=== PATIENT | male | born 1960 | race Caucasian/White ===

== ENCOUNTER 2017-05-27 15:38 | Inpatient (IN) | payer OTHER ==
[~2017-05-27] VITALS: Ht 188 cm; Wt 101.6 kg
[2017-05-27 16:20] VITALS: BP 133/90; PULSE 71; RESP 16; O2SAT 98
[2017-05-27 16:56] VITALS: BP 138/86; PULSE 66; RESP 14; O2SAT 98
[2017-05-27] MEDS ORDERED: Heparin 25K Unit/500mL 0.45 NS 25,000 UNIT in IV Premix 1 EACH IV SCH (17:25)
[2017-05-27] MEDS ORDERED: Heparin 5,000 Unit/mL Inj IVPUSH ONE (17:25)
[2017-05-27] MEDS ORDERED: Heparin 5,000 Unit/mL Inj IVPUSH PRN ×2 (17:25→23:05)
--- NOTE | 2017-05-27 17:25 | ED.REPORT ---
HPI-General Illness Date of Service May 27, 2017 ED Provider: Venancio Dailey DO Pt is a previously healthy 56 y/o male presenting to the ED c/o right calf pain and swelling which has been occurring intermittently since last October. The patient injured his right posterior calf while moving firewood 2015 and since that time has been experiencing intermittent right calf pain and swelling. He has also been experiencing intermittent dyspnea on exertion which is NOT commensurate with the effort he has been putting in. He previously exercised and lifted heavy weights regularly without any problems with dyspnea. He has no history of blood clots or other medical problems. The patient had a RLE US ordered by his PCP and it was taken today and positive for extensive DVT of the RLE with areas of occlusion, report below. Pt denies pleuritic pain, chest pain, dyspnea without exertion, epistaxis, bloody stools. FINDINGS: There is extensive echogenic thrombus throughout the superficial femoral, popliteal, posterior tibial and peroneal veins, with partial or noncompressibility of the involved vessels. Color Doppler interrogation demonstrates patchy preserved venous flow within portions of the superficial femoral vein. Right common femoral vein remains normally compressible. IMPRESSION: Extensive occlusive and nonocclusive right lower extremity deep venous thrombus extends from the superficial femoral vein down to the posterior tibial and peroneal veins. Nursing Notes Stated Complaint: BLOOD CLOT,SENT FROM [facility] Chief Complaint: General Complaint Nursing Notes Reviewed: Yes Allergies: Coded Allergies: No Known Allergies (Unverified , 05/27/17) Scheduled FA/Vit B Complex & C/Rice Bran (Vitamin B-Complex & C Caplet) 1 Each Tablet 1 EACH PO DAILY General Time Seen by MD: 17:05 Chief Complaint Other (RLE edema) Hx Obtained From: Patient Arrived By: Walk-in Onset Occurred: More than a week ago... (>6 months) Symptom Duration: Intermittent Location: : Leg right Quality: Painful Severity: Current: Mild Severity: Maximum: Moderate Recent Healthcare: Recent doctor visit Past Medical History Past Medical History Reactive airways disease Otherwise denies Past Surgical History None reported Smoking History Unknown if Ever Smoker Social History Other Social History: Good social support Ambulatory Status Independent Review of Systems Full Review of Systems Constitutional: Denies: Chills, Fever Respiratory: Reports: Dyspnea on exertion, Denies: Pleuritic pain, Shortness of breath Cardiovascular: Denies: Chest pain GI: Denies: Abdominal pain, Bloody/tarry stool, Nausea, Vomiting Musculoskeletal: Reports: Extremity pain, Extremity swelling Hematologic: Denies Adenopathy, Denies Bleeding, Denies Bruising, Denies Petechiae Skin: Denies Rash Complete sys rev & neg: except as marked. Physical Exam Vital Signs Vital Signs Date Time Temp Pulse Resp B/P Pulse Ox O2 Delivery O2 Flow Rate FiO2 05/27/17 19:34 71 16 117/73 97 05/27/17 19:32 66 20 134/89 97 Room Air 05/27/17 16:56 36.3 66 14 138/86 98 Room Air 05/27/17 16:20 36.4 71 16 133/90 98 Room Air Initial VS: Reviewed, Vital signs normal Head / Eyes: Atraumatic, Normocephalic, PERRL ENT: Mucous membranes moist, Conjunctiva normal, No scleral icterus Neck: Supple, Full range of motion Respiratory: Breath sounds normal, Clear to auscultation, No respiratory distress Cardiovascular: Regular rate & rhythm, Heart sounds normal, Intact distal pulses Abdomen / GI: Soft, Non-tender, No distention Skin: Warm, Dry, No cyanosis Neurologic: Alert, Oriented, Nonfocal Psychiatric: Mood/affect normal, Behavior normal, Normal thought content General/Constitutional: Awake, Alert, No acute distress, Well appearing, Cooperative, Not toxic appearing Lower Extremity / Pelvis / MS: No deformity, Neurologic intact, Vascular intact Edema of the R calf extending up the leg Interpretation & Diagnostics Lab Results Interpretation Result Diagram: 05/27/17 1648 05/27/17 1648 Test 05/27/17 16:48 05/27/17 18:04 White Blood Count 7.2th/mm3 (3.8-10.1) Red Blood Count 5.20mil/mm3 (4.40-5.80) Hemoglobin 16.0g/dL (13.8-17.2) Hematocrit 46.7% (41.0-50.0) Mean Corpuscular Volume 89.8fL (81-100) Mean Corpuscular Hemoglobin 30.8pg (27.0-35.0) Mean Corpuscular Hemoglobin Concent 34.3% (32.0-37.0) Red Cell Distribution Width 12.3% (12.3-15.4) Platelet Count 205bil/L (150-400) Neutrophils (%) (Auto) 72.1% (40-74) Lymphocytes (%) (Auto) 19.9% (14-46) Monocytes (%) (Auto) 6.7% (4-12) Eosinophils (%) (Auto) 0.6% (0-5) Basophils (%) (Auto) 0.6% (0-3) Hold Purple Top Tube Received (Received) Prothrombin Time 11.1sec (8.1-12.5) Prothromb Time International Ratio 1.04ratio Hold Blue Top Tube Received (Received) Hold Urine Received (Received) Sodium Level 139mEq/L (134-144) Potassium Level 4.3mEq/L (3.5-5.2) Chloride Level 99mEq/L (97-108) Carbon Dioxide Level 24mmol/L (18-29) Blood Urea Nitrogen 25mg/dL (6-24) Creatinine 0.89mg/dL (0.76-1.27) Estimat Glomerular Filtration Rate 94mL/min (>59) Glucose Level 125mg/dL (60-99) Calcium Level 9.6mg/dL (8.5-10.1) Total Bilirubin 0.5mg/dL (0.0-1.2) Aspartate Amino Transf (AST/SGOT) 19U/L (0-50) Alanine Aminotransferase (ALT/SGPT) 20U/L (0-44) Alkaline Phosphatase 81U/L (25-150) Total Protein 8.0g/dL (6.4-8.4) Albumin 4.5g/dL (3.4-5.0) Hold [place] Top Tube Received (Received) Hold Prince Top Tube Received (Received) X-Ray Chest Interpretation Chest Xray Interpretation: IMPRESSION: No acute cardiopulmonary disease. Dictated by: Vivek Galicia M.D. on 05/27/2017 at 18:05 Approved by: Vivek Galicia M.D. on 05/27/2017 at 18:05 View: Portable, 1 view Interpretation / Wet Read by: Interpret - Radiologist US Focused Lower Ext Venous FINDINGS: There is extensive echogenic thrombus throughout the superficial femoral, popliteal, posterior tibial and peroneal veins, with partial or noncompressibility of the involved vessels. Color Doppler interrogation demonstrates patchy preserved venous flow within portions of the superficial femoral vein. Right common femoral vein remains normally compressible. IMPRESSION: Extensive occlusive and nonocclusive right lower extremity deep venous thrombus extends from the superficial femoral vein down to the posterior tibial and peroneal veins. Dictated by: Vivek Galicia M.D. on 05/27/2017 at 15:33 Approved by: Vivek Galicia M.D. on 05/27/2017 at 15:37 Exam Performed by: Allied health pract Exam Interpreted by: Radiologist Re-Eval/Medical Decision Time of Eval: 17:26 Re-Evaluation/Progress Note: Pt rechecked. Informed pt of need for admission. Pt understands and agrees with plan for admission. All questions addressed. Consultation #1: Referral / Consult Name: Anatoliy Stallings MD Consulted With: Music Worker Call Returned at: 17:42 Battery Assembler Plastic: Agrees with eval, Agrees with plan Note: Recommends consult interventional radiology or cardiology and admit. Consultation #2: Referral / Consult Name: Sami Yanes MD Consulted With: Cardiology Call Returned at: 17:45 Battery Assembler Plastic: Will see patient, Agrees with eval, Agrees with plan Note: Will consult during admit. Consultation #3: Referral / Consult Name: Rand Roberson DO Consulted With: Hospitalist Call Returned at: 19:34 Battery Assembler Plastic: Will see patient, Agrees with eval, Agrees with plan, Accepts admit Counseled Regarding: Diagnosis, Lab results, Need for admission Discharge & Departure Primary Impression: Deep vein thrombosis (DVT) of right lower extremity Affected thrombotic vein of extremity: unspecified vein of extremity Chronicity: unspecified Qualified Code: I82.401 - Acute embolism and thrombosis of unspecified deep veins of right lower extremity Disposition: ADMITTED TO HOSPITAL Discharge Condition All VS Reviewed: Yes Condition: Stable Referrals: Rand Baird (PCP) Crit Care Except Billable Proc Time Spent: 30-74 minutes Services Performed: Patient management by me, Time spent at bedside, Reviewing test results, Reviewing imaging, Discussing patient care, Documentation in record Scribe Attestation Portions of this note were transcribed by Yusef Feng. I, Dr. Dailey personally performed the history, physical exam and medical decision-making; I reviewed and confirmed the accuracy of the information in the transcribed note. Signed by Ming Farr, 05/27/17 4 copies to: Rand Baird Todd P DO May 27, 2017 17:25 YUSEF FENG May 27, 2017 17:31 Anish Canales May 27, 2017 19:41
[2017-05-27 17:36] LABS: BASOPHILS % (AUTO) 0.6 % (0-3); EOSINOPHILS % (AUTO) 0.6 % (0-5); MONOCYTES % (AUTO) 6.7 % (4-12); Mean Corpuscular Hemoglobin 30.8 pg (27.0-35.0); Mean Corpuscular Volume 89.8 fL (81-100); NEUTROPHILS % (AUTO) 72.1 % (40-74); Platelet Count 205 bil/L (150-400)
[2017-05-27 17:42] LABS: INR 1.04 ratio
--- NOTE | 2017-05-27 18:07 | DRSVH ---
PROCEDURE: X-RAY CHEST, TWO VIEWS ([id number]) INDICATIONS: 56 year-old male with extensive right lower extremity deep venous thrombosis. TECHNIQUE: 2 views of the chest were acquired. COMPARISON: None. FINDINGS: Surgical changes and devices: None. Lungs and pleura: No pleural effusions or pneumothorax. Lungs are clear. Mediastinum: Mediastinal contours are normal. Heart size is normal. Bones and chest wall: No suspicious bony abnormalities. Soft tissues appear unremarkable. IMPRESSION: No acute cardiopulmonary disease. Dictated by: Vivek Galicia M.D. on 05/27/2017 at 18:05 Approved by: Vivek Galicia M.D. on 05/27/2017 at 18:05
[2017-05-27] MEDS ORDERED: FA/V1TAB2 PO (18:18)
[2017-05-27 19:32] VITALS: BP 134/89; PULSE 66; RESP 20; O2SAT 97
[2017-05-27 19:34] VITALS: BP 117/73; PULSE 71; RESP 16; O2SAT 97
[2017-05-27] MEDS ORDERED: Alum-Mag Hydrox-Simeth 30 mL Suspension PO PRN ×2 (19:50→23:05)
[2017-05-27] MEDS ORDERED: Ondansetron 2 mg/mL 2 mL Inj IVPUSH PRN ×2 (19:50→23:05)
[2017-05-27 20:30] VITALS: PULSE 67
--- NOTE | 2017-05-27 20:30 | NUR ---
Admit Note Pt admitted for Right leg DVT and Possible PE. Pt arrived via gurney accompanied by ED RN and Pt's family. Pt transferred self to hospital bed with SBA, gait steady. Pt arrived with IV Heparin drip infusing per DVT protocol at 18 units/kg/hour. Tele monitor applied, Tele SB-SR with [facility] PAC's, Pt denies chest pain. VS stable and afebrile. Pt oriented to room, bed, TV, telephone and call light system. Pt to be NPO after midnight. Pt is A&O X3.
[2017-05-27 20:56] VITALS: BP 129/83; PULSE 63; RESP 18; O2SAT 96
[2017-05-27 21:30] LABS: APPEARANCE,URINE CLEAR (CLEAR,HAZY); COLOR,URINE DARK YELLOW (YELLOW); OCCULT BLOOD,URINE NEGATIVE (NEGATIVE); UROBILINOGEN,URINE NORMAL (NORMAL)
--- NOTE | 2017-05-27 23:01 | PCM.HPMED ---
Subjective Date of Service May 27, 2017 Primary Provider: Admitting Physician: Rand Roberson DO Primary Care Physician: Jennifer Mirza MD Attending Physician: Rand Roberson DO Admit Status: From the Emergency Department Chief Complaint: Lower leg pain History of Present Illness: 56-year-old active male with only past medical history including reactive airway disease who presented to emergency department room due to persistent right calf pain and swelling which is been occurring intermittently since before 2015 following a traumatic injury while moving firewood. The patient states that initially his leg was sore but they started noticing intermittently he would be limited due to increased swelling, and pain on exertion. Patient also noticed over the last 8 months that he has intermittent dyspnea and while he usually can work out with weights and cardio he has had to limit himself due to intermittent shortness of breath. The shortness of breath is brand-new for him. He denies any recent fever, chills, dizziness, lightheadedness, chest pain, chest pressure, night sweats, weight loss, or unexplained neurological symptoms. Patient has not had a colonoscopy. Emergency room patient with Doppler which showed extensive thrombus to the superficial femoral, popliteal, and posterior tibial and peroneal veins with occlusion. Dr. Dailey contacted Dr. Yanes will see the patient in the morning. In the meantime, blood is drawn to assess for hypercoagulable state and then placed on heparin. Review of Systems: Complete review of systems performed; pertinent positives and negatives per history of present illness, all other systems reviewed and are negative Allergies Coded Allergies: No Known Allergies (Unverified , 05/27/17) Home Medications Complex vitamin PMH Reactive airway disease, not on medication Surgical History No surgical history Family History No history of colon cancer Father of cardiac disease and hypertension Mother living also has cardiac disease and hypertension Social History Hx Alcohol Use: Yes (occ use) Hx Substance Use: No Hx Tobacco Use: No Smoking Status: Never Smoker Living Arrangement: with Family Exam Vital Signs Vital Sign - Last Date Time Temp Pulse Resp B/P Pulse Ox O2 Delivery O2 Flow Rate FiO2 05/27/17 20:56 36.9 63 18 129/83 96 Room Air Exam General: Pleasant male appropriate age, nonobese, no acute distress HEENT: PERRLA, EOMI, nonicteric, membranes moist Lymph: No lymphadenopathy Cardio: Regular rate and rhythm no murmurs rubs or gallops Respiratory: CTA bilaterally, no wheezes, no crackles Abdomen: Soft, positive bowel sounds, nontender, nondistended, possible splenomegaly Extremities: Trace edema, 5 out of 5 strength, sensation intact Psych: Appropriate mood and affect Neuro: CN II through XII grossly intact, sensation intact throughout Skin: No rash Lab and Diagnostics Result Diagram: 05/27/17 1648 05/27/17 1648 X-Rays, CTs and MRIs Chest x-ray IMPRESSION: No acute cardiopulmonary disease. Dictated by: Vivek Galicia M.D. on 05/27/2017 at 18:05 US focused lower extremity venous IMPRESSION: Extensive occlusive and nonocclusive right lower extremity deep venous thrombus extends from the superficial femoral vein down to the posterior tibial and peroneal veins. Dictated by: Vivek Galicia M.D. on 05/27/2017 at 15:33 Approved by: Vivek Galicia M.D. on 05/27/2017 at 15:37 Assessment & Plan 56-year-old male with history of reactive airway disease who presented due to persistent right lower extremity swelling and pain, with restrictive exercise tolerance. Acute on chronic occlusive DVT, confirmed by ultrasound; present admission; ongoing -Etiology unclear, although likely due to traumatic event in September; intermittent shortness of breath could be due to reactive airway disease is also worrisome for intermittent PE, -Differentials include undiagnosed clotting disorder (although rare cannot be diagnosed until his 50s) or cancer as the patient has never had a colonoscopy -Hypercoagulable studies pending -heparin drip -CTA should be considered following discussion with Dr. Yanes in a.m., concern for acute / chronic PE given chronicity of symptoms -ED discussed with Dr. Yanes who will see the patient in the a.m. -Patient will need to go on anticoagulation -Cardiac risk factors are low and we will defer echo at this time -NPO after midnight -Recommend colonoscopy Dyspnea, chronic, POA -patient with history of exercise intolerance in the setting of likely chronic DVT -Possible a/w asthma -Treatment as above Hyperglycemia; present admission; ongoing -Unsure blood work was fasting blood glucose greater than 125 -We will continue to monitor -A1c ordered Disposition: Patient is being admitted to inpatient status with expected length of stay greater than two midnights due to to severity of presentation, duration of treatment, and risks of adverse events disposition Full code Pain Evaluation: Adequate Pain Control GI Prophylaxis: H2 stormy (due to anticoagulation) VTE Prophylaxis: Other (Heparin dirp) Resuscitation Status: CPR: Attempt Resuscitation Attending Statement The patient was seen and examined together with house staff on 05/27/2017 and I agree with the history, exam and plan as outlined in the note above. Scooter Landon DO May 27, 2017 23:01 Rand Roberson DO May 28, 2017 01:04
[2017-05-27] MEDS ORDERED: Polyethylene Glycol (PEG) 17 Gm Powder PO PRN (23:05)
[2017-05-28] VITALS (7 sets, daily range): BP systolic 121–145; BP diastolic 77–87; PULSE 50–74; RESP 16–20; O2SAT 97–100
[2017-05-28] MEDS: Heparin 25K Unit/500mL 0.45 NS 25,000 UNIT in IV Premix 1 EACH IV SCH ×2 (05:43→19:41)
[2017-05-28 07:46] LABS: Magnesium 2.2 mg/dL (1.6-2.6); Phosphorus 3.1 mg/dL (2.5-4.9)
--- NOTE | 2017-05-28 12:18 | DRSVH ---
[facility] [address] [place] [address] Echocardiogram Report Name: REBEKAH RODRÍGUEZ Kumar e: 05/28/2017 Height: 74 in Hospital Exam Location: [facility] Weight: 223 lb Gender: Male BSA: 2.3 m2 : 1960 Age: 56 yrs BP: 126/79 mmHg Reason For Study: DVT, R/O PULMONARY EMBOLISM Ordering Physician: Performed By: Zara Tavares Referring Physician: Dr. Marsha Mirza Interpretation Summary The left ventricle is normal in size. The ejection fraction is estimated to be 55-60%. The right ventricle is mildly dilated. The right ventricular systolic function is normal. There is mild tricuspid regurgitation. Pulmonary artery pressures cannot be estimated because of the lack of a measurable TR jet velocity. However, doppler pattern across the pulmonary valve, suggest presence of pulmonary hypertension. The IVC is dilated (diameter is greater than 2.1 cm) yet it collapses greater than 50% with a sniff. This suggests a right atrial pressure of 8 mm Hg. The ascending aorta is mildly enlarged. Procedure: A two-dimensional transthoracic echocardiogram with color flow and Doppler was performed. The study quality was technically adequate. There is no prior echocardiogram noted for this patient. The patient was in normal sinus rhythm during the exam. The patient had occasional PACs during the exam. Left Ventricle: The left ventricle is normal in size. Left ventricular wall thickness is borderline increased. Proximal septal thickening is noted. There is no echo evidence for significant left ventricular outflow tract obstruction. There is no thrombus. The ejection fraction is estimated to be 55-60%. There is a mild dyssynchronous contraction pattern, consistent with a conduction abnormality. E/E' is mildly abnormal. Right Ventricle: The right ventricle is mildly dilated. The right ventricular systolic function is normal. Atria: Both atria are normal in size. There is no Doppler evidence for an interatrial shunt. Mitral Valve: The mitral valve leaflets are slightly calcified. There is trace mitral regurgitation. Aortic Valve: The aortic valve opens well. The aortic valve is not well visualized. There is no aortic valve stenosis. No aortic regurgitation is present. Tricuspid Valve: The tricuspid valve is not well visualized, but is grossly normal. Pulmonary artery pressures cannot be estimated because of the lack of a measurable TR jet velocity. There is mild tricuspid regurgitation. Pulmonic Valve: The pulmonic valve is not well seen, but is grossly normal. There is no pulmonic valvular stenosis. There is trace pulmonic regurgitation. Great Vessels: The aortic root is normal size. The ascending aorta is mildly enlarged. The aortic arch is normal in size. The IVC is dilated (diameter is greater than 2.1 cm) yet it collapses greater than 50% with a sniff. This suggests a right atrial pressure of 8 mm Hg. Pericardium/ Pleura There is no pericardial effusion. MMode/2D Measurements & Calculations LVIDd: 4.8 cm RA long axis LVOT diam: 2.2 cm LVIDs: 2.9 cm LA A2 area: 25.6 cm AoV Opening FS: 38.3 % LA A4 area: 18.2 cm RA area EPSS: 0.26 cm LA length (vol) Ao root diam IVSd: 1.2 cm : 18.9 cm LVPWd: 0.99 cm LA vol: 71.1 ml RA vol Aortic Jxn: 2.8 cm LA vol index : 56.8 ml asc Aorta Diam RA : 25.0 mm2 Ao Arch Diam (Prox IVC diam: 2.0 cm Trans): 2.9 cm LV solis. diameter/BSA LV sys. diameter/BSA RVD1 (basal) RVD2 (mid): 2.6 cm (cm/m^2): 2.1 (cm/m^2): 1.3 TAPSE: 2.8 cm Doppler Measurements & Calculations Ao V2 max MV E max laureano MV E/A: 1.0 PA V2 max : 176.9 cm/sec : 85.9 cm/sec Med Peak E' Laureano : 83.2 cm/sec Ao max PG MV A max laureano PA mean PG : 12.5 mmHg : 83.8 cm/sec E/E' med: 12.2 Ao mean PG MV P1/2t: 80.5 msec Lat Peak E' Laureano PA Accel Time : 0.07 sec LVOT Max Laureano E/E' lat: 6.7 : 115.7 cm/sec E/e' average: 9.4 JOSE LUIS(I,D): 2.5 cm sev ratio MV dec time MV P1/2t max laureano Ao V2 mean LV V1 max PG : 0.27 sec : 123.7 cm/sec MVA(P1/2t): 2.7 cm2 Ao V2 VTI: 37.7 cm LV V1 VTI JOSE LUIS(V,D): 2.4 cm2 : 25.3 cm PA V2 mean JOSE LUIS indexed to BSA : 64.6 cm/sec (cm^2/m^2): 1.1 Reading Physician:KANDICE
--- NOTE | 2017-05-28 13:27 | CONS ---
[address] [address] CONSULTATION REPORT PATIENT: REBEKAH RODRÍGUEZ : 1960 MR#: [id number] ADMIT: 05/27/2017 JOB ID: [id number] DATE OF SERVICE: 05/28/2017 CHIEF COMPLAINT: Leg pain. HISTORY OF PRESENT ILLNESS: This very pleasant, 56-year-old gentleman presented to the hospital complaining of right calf pain. This right calf discomfort goes back to around Thanksgiving time, when he hit his calf and it became swollen. He never sought medical attention. Intermittently, his leg would get swollen. Despite that, he was fairly active during winter. He went skiing and skied down [place] slopes without any problems. However, he was seen in the emergency department yesterday because of calf pain and an ultrasound done showed extensive DVT. He was admitted for anticoagulation and I was consulted to consider him for catheter-directed thrombolysis. In the interim, the patient has noted gradual shortness of breath. As mentioned, he is a very active person, so shortness of breath with activity is somewhat unusual for him. He is denying any chest pressure, chest tightness. He does not remember any history of having had hemoptysis or chest discomfort. REVIEW OF SYSTEMS: Comprehensive review of system was done and is negative, pertinent features being no history of strokes, TIAs. No prior history of DVTs. There is no history of travel. PERSONAL HISTORY: Nonsmoker. Occasional alcohol use. PAST MEDICAL HISTORY: Asthma. He is not on any medications. ALLERGIES: None. FAMILY HISTORY: There is no history of premature cardiac disease. There is no history of coagulopathies in his family. EXAMINATION: Comfortable, middle-aged man in no apparent distress. Pulse 60, blood pressure 130/80. Neck supple. No JVD. Chest: Clear. Heart sounds S1, S2, regular. No wheezes, no rales. Abdomen soft. No organomegaly. Extremities: Trace edema. The right calf is swollen and distinctly bigger than the left. The patient tells me it was measured to be 6 cm bigger. DIRECTOR OF INDUSTRIAL RELATIONS: Alert and oriented x3. LAB DATA: Reviewed. White count is 7. Hemoglobin is 16. Creatinine is 0.89. Mildly elevated a.m. sugar of 112. LDL is 88. HDL is low at 34. ASSESSMENT AND PLAN: This gentleman has extensive right leg deep venous thrombosis. I have discussed the treatment options available to him, which includes catheter-directed thrombolysis. I discussed the rationale behind catheter-directed thrombolysis and conventional therapy, which would include anticoagulation with either warfarin or novel anticoagulants for at least six months. The patient is going to think about this. It is possible that his DVT was provoked by trauma. However, the patient is not certain. It might be worthwhile to evaluate him for a hypercoagulable state. Hematology consult may be considered. Thank you for letting me be involved in his care. I have ordered a CT scan to rule out any pulmonary emboli that might be contributing to his shortness of breath.
--- NOTE | 2017-05-28 15:08 | NUR ---
Social Work: Screening/Multidisciplinary Rounds D: EMR reviewed. Pt is a 56 y/o male admitted for DVT, possible PE per H&P. Per rounds, pt to received echo and chest x-ray today - no SW needs identified or MD orders received. Pt's insurance is [employer] and PCP is Marsha Mirza MD. NOK is spouse Homa Remy [phone]. Pt lives at home with her family in [place]. Pt likely to discharge home via POV when medically stable. Per rounds, no SW needs anticipated - SW will continue to follow. A: Pt who is independent at baseline P: Pt likely to discharge home via POV when medically stable. SW to follow for discharge needs/MD orders. No SW needs identified at this time - no MD orders received. SW will continue to follow for needs. LORENA Weiss Addendum: 05/28/17 at 1544 by NASREEN COLLAZO SW dicsussed DPOA/advanced directive ppw with pt at bedside - pt declined stating his kids mother will be the one to determine anything if he is not able to make decisions. Pt stated he will drive himself home via POV at time of discharge. LORENA Weiss
--- NOTE | 2017-05-28 16:37 | NUR ---
Arrhythmia Pt. experienced 2 short bursts of SVT and 3-beat V-tach in the afternoon. Pt. was talking on his cell phone when that happened. Pt. denied any symptoms. Showed tele strips to Dr. Moon. Pt. will have chest CT R/O PE.
--- NOTE | 2017-05-28 17:09 | NUR ---
[facility] Radiology called charge nurse about "2 large bilateral PE" on chest CT. Dr. Moon was notified immediately. Continue Heparin DVT/PE protocol infusion.
--- NOTE | 2017-05-28 17:12 | DRSVH ---
PROCEDURE: CT ANGIO CHEST PULMONARY EMBOLISM ([id number]) INDICATIONS: r/o PE TECHNIQUE: After the administration of intravenous contrast, 2 mm thick sections acquired from the pulmonary api herman to the posterior costophrenic angles. 3-dimensional maximum intensity projection (MIP) coronal a nd sagittal reformats were then acquired through the thorax. For radiation dose reduction, the follo wing was used: automated exposure control, adjustment of mA and/or kV according to patient size. COMPARISON: None. FINDINGS: Image quality: Excellent. Pulmonary arteries: Pulmonary arteries are normal in size, and demonstrate definite bilateral intral uminal filling defects diagnostic of central pulmonary embolism. Please can be seen within the main pulmonary arteries bilaterally centrally, and extending into the lower lobe pulmonary arteries bilate rally, generally not completely occlusive but large in overall volume. The right and left heart jessica bers do not appear asymmetrically enlarged or to contain thrombus. Lungs and pleura: Lungs are clear. No pleural effusions or pneumothorax. Central and peripheral ai rways are patent. Mediastinum: Heart size is normal, without pericardial effusion. No mediastinal or hilar adenopathy . Thoracic aorta is normal in caliber and enhancement. Esophagus is normal in caliber, without hiat al hernia. Bones and chest wall: No suspicious bony lesions. Ribs and thoracic spine appear intact throughout. Thyroid gland appears normal where well visualized. No axillary or supraclavicular adenopathy. Abdomen: Visualized upper abdominal solid organs appear normal in the early arterial phase of enhanc ement. IMPRESSION: Large bilateral central pulmonary emboli involving the main pulmonary arteries with saddl e embolus tracking into the lower lobes bilaterally. No pulmonary infarction or areas of ischemic in jury to the lung parenchyma is found. This information was immediately called to the nursing staff del camacho for the patient via the charge nurse, and this information will then be immediately conveyed to the hospital staff caring for the patient. Dictated by: Jeremias Gay M.D. on 05/28/2017 at 16:59 Approved by: Jeremias Gay M.D. on 05/28/2017 at 17:10
[2017-05-29] VITALS (8 sets, daily range): BP systolic 122–149; BP diastolic 73–96; PULSE 54–82; RESP 12–16; O2SAT 97–99
--- NOTE | 2017-05-29 00:24 | PCM.PNMED ---
Subjective Date of Service May 29, 2017 Subjective The patient has no new complaints. He has no shortness of breath laying supine in bed. His right lower extremity is currently not painful. Patient has no other new complaints. Exam Vital Signs Vital Sign - Last Date Time Temp Pulse Resp B/P Pulse Ox O2 Delivery O2 Flow Rate FiO2 05/28/17 20:32 36.4 74 16 128/82 99 Room Air Intake and Output 05/28/17 05/28/17 05/29/17 Cumulative From/Thru 15:00 23:00 07:00 05/27/17 16:20 - 05/28/17 20:41 Intake Total 1247 ml 2100 ml Output Total 900 ml 1500 ml Balance 347 ml 600 ml Intake Oral 800 ml 1200 ml IV Total 447 ml 900 ml Output Urine Total 900 ml 1500 ml # Bowel Movements 1 1 Exam General: The patient is resting comfortably supine in bed with his right lower extremity elevated. HEENT: Head is atraumatic and normocephalic. Eyes: Pupils are equally round and reactive to light and accommodation. Extraocular muscles are intact. Sclera are white, anicteric. Subconjunctival mucosa is pink. Ears and nose are unremarkable. Oropharynx: There is no mucosal lesions, there is no thrush, there is no pharyngitis. Neck: Is supple, there are no nodes, or masses or tenderness. Chest: Is clear to auscultation and percussion. There are no rales, rhonchi, wheezes or rubs. Heart: Rate, rhythm is regular. There is no murmur, rub or gallop. Abdomen: Good bowel sounds are present. Abdomen is soft, nontender, no organomegaly or masses were appreciated. Extremities: There is some edema of the right lower extremity. However, there is no cellulitis. There is no tenderness. Negative Homans sign. Neurologic: There are no focal neurological deficits. Cranial nerves II through XII are intact. There are no sensory or motor deficits. Psychiatric: Patients mood is calm and shows no sign of agitation. Genital: Deferred Rectal: Deferred Lab and Diagnostics Result Diagram: 05/27/17 1648 05/28/17 0620 Microbiology Name: REBEKAH RODRÍGUEZ Age/Sex: 56/M Attend Dr: Jaspal Moon Acct: [id number] Unit: [id number] Status: ADM IN Location: [facility] [place] 3022-1 Re05/27/17 Disch: Specimen: [id number] Collected: 05/28/17-UNK Status: COMP Req#: [id number] Received: 05/28/17 Source: STOOL Sp Desc : Subm Dr: Jaspal Moon MD Ordered: WFOBT Comments: Collected by Nurse/Unit? Y/N Y Procedure Result Verified Site Microbiology GEE OCCULT BLOOD IMMUNOCHEM Final 05/28/17-1323 OCCULT BLD IMMUNOCHEMICAL NEGATIVE REFERENCE INTERVAL NEGATIVE X-Rays, CTs and MRIs Chest x-ray IMPRESSION: No acute cardiopulmonary disease. Dictated by: Vivek Galicia M.D. on 05/27/2017 at 18:05 focused lower extremity venous IMPRESSION: Extensive occlusive and nonocclusive right lower extremity deep venous thrombus extends from the superficial femoral vein down to the posterior tibial and peroneal veins. Dictated by: Vivek Galicia M.D. on 05/27/2017 at 15:33 Approved by: Vivek Galicia M.D. on 05/27/2017 at 15:37 Cardiac Echo Impressions Echocardiogram Report Name: REBEKAH RODRÍGUEZ Kumar e: 05/28/2017 Height: 74 in Hospital Exam Location: [facility] Weight: 223 lb Gender: Male BSA: 2.3 m2 : 1960 Age: 56 yrs BP: 126/79 mmHg Reason For Study: DVT, R/O PULMONARY EMBOLISM Ordering Physician: Performed By: Zara Tavares Referring Physician: Dr. Marsha Mirza Interpretation Summary The left ventricle is normal in size. The ejection fraction is estimated to be 55-60%. The right ventricle is mildly dilated. The right ventricular systolic function is normal. There is mild tricuspid regurgitation. Pulmonary artery pressures cannot be estimated because of the lack of a measurable TR jet velocity. However, doppler pattern across the pulmonary valve, suggest presence of pulmonary hypertension. The IVC is dilated (diameter is greater than 2.1 cm) yet it collapses greater than 50% with a sniff. This suggests a right atrial pressure of 8 mm Hg. The ascending aorta is mildly enlarged. Assessment & Plan The patient is a 56-year-old white male with history of reactive airway disease who presented due to persistent right lower extremity swelling and pain, with restrictive exercise tolerance. Acute on chronic occlusive DVT, confirmed by ultrasound; present admission; ongoing -Etiology unclear, although likely due to traumatic event in September; intermittent shortness of breath could be due to reactive airway disease is also worrisome for intermittent PE, -Differentials include undiagnosed clotting disorder (although rare cannot be diagnosed until his 50s) or cancer as the patient has never had a colonoscopy -Hypercoagulable studies pending -heparin drip -CTA showed a " Large bilateral central pulmonary emboli involving the main pulmonary arteries with saddle embolus tracking into the lower lobes bilaterally. No pulmonary infarction or areas of ischemic injury to the lung parenchyma is found. This information was immediately called to the nursing staff caring for the patient via the charge nurse, and this information will then be immediately conveyed to the hospital staff caring for the patient." -ED discussed with Dr. Yanes who has agreed to see the patient. We appreciate his time and expertise. His assessment and plan are as follows: "This gentleman has extensive right leg deep venous thrombosis. I have discussed the treatment options available to him, which includes catheter-directed thrombolysis. I discussed the rationale behind catheter-directed thrombolysis and conventional therapy, which would include anticoagulation with either warfarin or novel anticoagulants for at least six months. The patient is going to think about this. It is possible that his DVT was provoked by trauma. However, the patient is not certain. It might be worthwhile to evaluate him for a hypercoagulable state. Hematology consult may be considered. Thank you for letting me be involved in his care. I have ordered a CT scan to rule out any pulmonary emboli that might be contributing to his shortness of breath." -We will continue the IV heparin drip for now. -Echocardiogram was ordered. Dyspnea, chronic, present on admission -The patient has a history of exercise intolerance in the setting of likely chronic DVT likely due to pulmonary emboli -Possible associated with asthma -Treatment as above Hyperglycemia; present admission; ongoing -Unsure blood work was fasting blood glucose greater than 125 -We will continue to monitor -A1c ordered Disposition: Patient will be here several days further the evaluation and treatment of the above condition. Pain Evaluation: Adequate Pain Control GI Prophylaxis: H2 stormy (due to anticoagulation) VTE Prophylaxis: Other (Heparin dirp) Resuscitation Status: CPR: Attempt Resuscitation Jaspal Moon MD May 29, 2017 00:24
--- NOTE | 2017-05-29 05:10 | NUR ---
uneventful night Pt slept most of the night. Additional IV started on L forearm as the L arm IV was beeping with distal occlusion when pt fell asleep. Pt NPO since midnight for possible procedure in AM
[2017-05-29 07:14] LABS: Protein C-Functional 111 % (73-180)
[2017-05-29 08:07] LABS: Magnesium 2.3 mg/dL (1.6-2.6)
[2017-05-29 08:21] LABS: BASOPHILS % (AUTO) 0.7 % (0-3); EOSINOPHILS % (AUTO) 2.2 % (0-5); MONOCYTES % (AUTO) 6.5 % (4-12); Mean Corpuscular Hemoglobin 31.4 pg (27.0-35.0); Mean Corpuscular Volume 91.2 fL (81-100); NEUTROPHILS % (AUTO) 60.6 % (40-74); Platelet Count 198 bil/L (150-400)
[2017-05-29] MEDS: Heparin 25K Unit/500mL 0.45 NS 25,000 UNIT in IV Premix 1 EACH IV SCH (10:32)
--- NOTE | 2017-05-29 11:07 | PROG NOTE ---
[address] [address] PROGRESS NOTE PATIENT: REBEKAH RODRÍGUEZ : 1960 MR#: [id number] ADMIT: 05/27/2017 JOB ID: [id number] DATE: 05/29/2017 SUBJECTIVE: No new complaints. No shortness of breath. In the hospital he has not been doing much. Left leg is essentially unchanged. It is not hurting him at rest anymore. PHYSICAL EXAMINATION: On examination, vitals are stable. Pulse is 68, blood pressure 120/80, room air sat is around 97%. He is comfortable. He is speaking in full sentences. On examination, chest clear. Heart sounds S1, S2, regular. No gallops. Abdomen: Soft. Extremities: Right leg is swollen, minimally tender. IMAGING: CT scan reviewed with radiologist. Extensive bilateral pulmonary emboli. His leg ultrasound was also reviewed. There is extensive occlusive clot in his right lower extremity. ASSESSMENT AND PLAN: 1. Extensive right-sided deep venous thrombophlebitis. 2. Bilateral extensive pulmonary emboli. 3. By history it is difficult to be certain as to when the patient's pulmonary emboli happened. His deep venous thrombophlebitis is possible from somewhere around Thanksgiving time, though that is speculated. I discussed the patient's case with Dr. Colindres. He presents a tough choice because he is relatively young with extensive pulmonary emboli and residual deep venous thrombophlebitis in his legs. I have discussed patient's treatment options which would be anticoagulation only. Given the fact that he is saturating well and his blood pressure is maintained, it would be guidelines directed mode of therapy. However, after discussion with Dr. Colindres as well as with the patient, I think it would be better to proceed with catheter-directed thrombolysis. The patient was made very clear about the conventional treatment and that catheter directed thrombolysis is a newer therapy which has not yet withstood the test of time and has not been studied as extensively as some of the other modalities. He understands all this. More specifically, he understands the risk of bleeding and other complications. He is willing to proceed ahead with the same. Also, even though patient is eligible for anticoagulation given the fact that he has such extensive pulmonary emboli and any further pulmonary emboli could potentially be fatal, we discussed the option of IVC filter with possible removal in 3-6 months. The patient is agreeable for that also. He understands that the current guidelines recommend IVC filters only for the patients who are ineligible for anticoagulation. 4. The patient will be brought down to the labor relations or personnel negotiator today for catheter-directed thrombolysis. I intend to put an IVC filter tomorrow, and at that time, we will see if we can get access into his popliteal vein and do catheter directed thrombolysis of his lower extremities as well.
--- NOTE | 2017-05-29 11:31 | NUR ---
Social Work-multidisciplinary rounds: Per Md, pt will likely be in the hospital for several more days. Pt has PE, Cardiology to see pt today. No anticipated discharge needs. SW will continue to follow. LORENA Ma
--- NOTE | 2017-05-29 12:54 | PCM.CHPMED ---
Subjective Date of Service: May 29, 2017 Provider requesting consult: Jaspal Moon MD Primary Physician: Admitting Physician: Rand Roberson DO Primary Care Physician: Jennifer Mirza MD Attending Physician: Jaspal Moon MD Admit Status: From the Emergency Department Chief Complaint: Chief Complaint: Right calf pain and swelling History of Present Illness: PULMONARY CONSULT: Attending physician: Oscar Colindres MD Resident Physician: Daksha Luther DO Reason for consult: Pulmonary embolism Jorje Remy is a 56-year-old previously healthy gentleman who presented with right calf pain and swelling intermittently associated with increasing shortness of breath for for the past 6-8 months who was admitted for anticoagulation and possible catheter-directed thrombolysis of extensive right lower extremity DVT. Patient states that his symptoms started just after Thanksgiving when he injured his leg while cutting fire wood. He attributed his pain to the injury and states that he took it easy for a while. However, he remained quite active and was able to ski several times during the winter after which he would note increased swelling. It was not until this Spring when started hiking and noticed that he was short of breath more easily that he became worried. He states that he thought he might have asthma but because he is a very active person the shortness of breath was certainly abnormal for him. Additionally he reports a gradual increase in his shortness of breath, noting a recent bike ride that he was forced to stop early due to his difficultly breathing. He denies chest pain or pressure, fever, chills, cough, hemoptysis or diaphoresis. He states that he is otherwise healthy and due to a family history of early cardiovascular disease has been on a heart healthy diet since he was in his 30s. A CT angio revealed large bilateral central pulmonary emboli involving the main pulmonary arteries with saddle embolus tracking into the lower lobes bilaterally and Pulmonology consulted prior to catheter directed therapy. Review of Systems: A comprehensive review of systems was conducted with the patient and found to be negative except as above in the History of Present Illness. PMH Past Medical History Asthma, not on medication Hernia repair Home Medications Multivitamin Allergies: Coded Allergies: No Known Allergies (Unverified , 05/27/17) Family History Family History Multiple family members (including father, mother and grandfather) with a history cardiovascular disease and hypertension. Social History Hx Alcohol Use: Yes (occ use)Hx Substance Use: NoHx Tobacco Use: No Smoking Status: Never Smoker Living Arrangement: with Family Exam Vital Signs Vital Sign - Last Date Time Temp Pulse Resp B/P Pulse Ox O2 Delivery O2 Flow Rate FiO2 05/29/17 09:22 62 05/29/17 09:20 36.3 16 122/80 99 Room Air Intake and Output 05/28/17 05/28/17 05/29/17 Cumulative From/Thru 15:00 23:00 07:00 05/27/17 16:20 - 05/29/17 05:30 Intake Total 1247 ml 0 ml 2100 ml Output Total 900 ml 2000 ml 3500 ml Balance 347 ml -2000 ml -1400 ml Intake Oral 800 ml 0 ml 1200 ml IV Total 447 ml 900 ml Output Urine Total 900 ml 2000 ml 3500 ml # Bowel Movements 1 0 1 General: Alert, Oriented X3 Mouth: Mucous Membr Moist/[place] Chest & Lungs: Auscultation (Clear to auscultation bilaterally with no crackles , wheezes, or rhonchi. Normal respiratory effort with no use of accessory muscles.) Cardiovascular: Regular Rate/Rhythm, No Murmurs/Rubs/Gallops Abdomen: Non-tender, Non-distended Extremities: Warm, Tenderness/Swelling Noted (right calf) Neurological: Grossly Neurologically Intact Lab and Diagnostics Labs Laboratory Tests Test 05/28/17 17:28 05/29/17 06:25 Activated Partial Thromboplast Time 66.4sec (22.8-33.0) 64.6sec (22.8-33.0) White Blood Count 6.7th/mm3 (3.8-10.1) Red Blood Count 4.65mil/mm3 (4.40-5.80) Hemoglobin 14.6g/dL (13.8-17.2) Hematocrit 42.4% (41.0-50.0) Mean Corpuscular Volume 91.2fL (81-100) Mean Corpuscular Hemoglobin 31.4pg (27.0-35.0) Mean Corpuscular Hemoglobin Concent 34.4% (32.0-37.0) Red Cell Distribution Width 12.0% (12.3-15.4) Platelet Count 198bil/L (150-400) Neutrophils (%) (Auto) 60.6% (40-74) Lymphocytes (%) (Auto) 29.9% (14-46) Monocytes (%) (Auto) 6.5% (4-12) Eosinophils (%) (Auto) 2.2% (0-5) Basophils (%) (Auto) 0.7% (0-3) Sodium Level 141mEq/L (134-144) Potassium Level 4.5mEq/L (3.5-5.2) Chloride Level 106mEq/L (97-108) Carbon Dioxide Level 22mmol/L (18-29) Blood Urea Nitrogen 17mg/dL (6-24) Creatinine 0.99mg/dL (0.76-1.27) Estimat Glomerular Filtration Rate 83mL/min (>59) Glucose Level 113mg/dL (60-99) Calcium Level 9.1mg/dL (8.5-10.1) Magnesium Level 2.3mg/dL (1.6-2.6) Total Bilirubin 0.4mg/dL (0.0-1.2) Aspartate Amino Transf (AST/SGOT) 24U/L (0-50) Alanine Aminotransferase (ALT/SGPT) 15U/L (0-44) Alkaline Phosphatase 68U/L (25-150) Total Protein 6.3g/dL (6.4-8.4) Albumin 3.9g/dL (3.4-5.0) Microbiology 05/28/17 Stool Occult Blood (GEE) -Negative Result Diagram: 05/29/17 0625 05/29/17 0625 X-Rays, CTs and MRIs (05/27/17) X-RAY CHEST, TWO VIEWS IMPRESSION: No acute cardiopulmonary disease. Dictated and approved by: Vivek Galicia M.D. on 05/27/2017 at 18:05 (05/28/17) CT ANGIO CHEST PULMONARY EMBOLISM IMPRESSION: Large bilateral central pulmonary emboli involving the main pulmonary arteries with saddle embolus tracking into the lower lobes bilaterally. No pulmonary infarction or areas of ischemic injury to the lung parenchyma is found. This information was immediately called to the nursing staff caring for the patient via the charge nurse, and this information will then be immediately conveyed to the hospital staff caring for the patient. Dictated and approved by: Jeremias Gay M.D. on 05/28/2017 at 16:59 Additional Diagnostics: (05/28/17) Echocardiogram Report Interpretation Summary The left ventricle is normal in size. The ejection fraction is estimated to be 55-60%. The right ventricle is mildly dilated. The right ventricular systolic function is normal. There is mild tricuspid regurgitation. Pulmonary artery pressures cannot be estimated because of the lack of a measurable TR jet velocity. However, doppler pattern across the pulmonary valve, suggest presence of pulmonary hypertension. The IVC is dilated (diameter is greater than 2.1 cm) yet it collapses greater than 50% with a sniff. This suggests a right atrial pressure of 8 mm Hg. The ascending aorta is mildly enlarged. Reading Physician:PM Assessment & Plan Assessment 56-year-old previously healthy gentleman who presented with right calf pain and swelling intermittently associated with increasing shortness of breath for the past 6-8 months admitted for further evaluation and management of extensive right lower extremity DVT and large bilateral central pulmonary emboli involving the main pulmonary arteries with saddle embolus tracking into the lower lobes bilaterally. Recommendations: Due to the patient's history of trauma to his right calf 8 months ago this is likely a provoked right lower extremity DVT. However there may also be a component of chronic thrombophlebitis contributing to the persistent pain and swelling on that side. Because the right lower extremity DVT is quite extensive and more likely to embolize during the traditional anticoagulation therapy with heparin alone the patient is at a higher risk for recurrent pulmonary embolism. This combined with the large clot burden in his lungs puts him at a high risk for and complete obstruction within the pulmonary arteries and thus recommend catheter-directed thrombolysis with IVC placement. Although the patient's DVT is likely provoked hypercoagulable studies are pending and recommend outpatient followup with Hematology. Problems: Pain Evaluation: Adequate Pain Control GI Prophylaxis: H2 stormy (due to anticoagulation) VTE Prophylaxis: Other (Heparin dirp) Resuscitation Status: CPR: Attempt Resuscitation Attending Statement The patient was seen and examined together with Dr. Luther on 05/29/2017 and I agree with the history, exam and plan as outlined in the note above. Daksha Luther DO May 29, 2017 11:50 Oscar Colindres MD Jun 02, 2017 14:33
[2017-05-29] MEDS ORDERED: 0.9% Sodium Chloride 2,000 ML ONE (13:25)
[2017-05-29] MEDS ORDERED: Heparin 1,000 Units/500 mL NS Premix IV ONE (13:25)
[2017-05-29] MEDS ORDERED: Heparin 10,000 Unit/1,000 mL NS Premix IV ONE (13:51)
[2017-05-29] MEDS ORDERED: 0.9% Sodium Chloride 1,000 ML ONE (13:51)
[2017-05-29] MEDS ORDERED: Heparin 1,000 Unit/mL 10 mL Inj ONE ×2 (13:51→14:58)
--- NOTE | 2017-05-29 14:18 | NUR ---
To Customer Facilities Supervisor then CCU Patient has 2 patent IV's in left arm. Patient going to CCU after thrombolytic procedure and patient report was called to Shruthi Rodriguez RN in CCU. laboratory development technician came to transfer patient and placed a Ramey catheter at that time. Patient informed of room he will transfer to after procedure.
[2017-05-29] MEDS ORDERED: fentaNYL-PF 50 mCg/mL 2 mL Inj ONE (14:31)
[2017-05-29 15:10] LABS: Protein C Antigen 96 % (60-150)
--- NOTE | 2017-05-29 16:06 | DI95 ---
[address] [address] INTERVENTIONAL CARDIAC CATHETERIZATION PATIENT: REBEKAH RODRÍGUEZ : 1960 MR#: [id number] ADMIT: 05/27/2017 JOB ID: [id number] DATE OF SERVICE: 05/29/2017 PROCEDURE: 1. Catheter-directed thrombolysis in the right pulmonary artery. 2. Catheter-directed thrombolysis in the left pulmonary artery. INDICATIONS: Severe bilateral saddle embolus. PROCEDURAL DETAILS: Please refer to the procedure log, both the coders andraders are refered to the procedure log contains complete details. Briefly it was done via right femoral approach. Using ultrasound guidance, we were able to access the right femoral vein. 6-Malawian sheaths were placed in the femoral vein and a pigtail was used to get into the left pulmonary vein first and then the right pulmonary vein. Long exchange J wire was placed in each of these vessels.. We then placed Ekos infusion catheter in both the left and the right pulmonay veins. The patient will receive thrombolysis at 1 mg/hour. The infusion will continue for 10 hours. In summary, successful placement of bilateral Ekcos thrombolysis catheters. MTDD
--- NOTE | 2017-05-29 17:37 | NUR ---
pt arrives to CCU/plan 1530 Pt arrives in CCU from lab scientist. R groin has 2 sheaths one to Right pulmonary artery and one to the left pulmonary artery. All drips checked with civil laboratory technician RN. Pt is alert oriented, denies pain and is satting 97% on RA. Plan for sheath removal at 0130 05/29.
[2017-05-30] VITALS (8 sets, daily range): BP systolic 124–139; BP diastolic 66–89; PULSE 60–68; RESP 13–21; O2SAT 96–100
--- NOTE | 2017-05-30 00:59 | PCM.PNMED ---
Subjective Date of Service May 30, 2017 Subjective Patient has no new complaints other than being very nervous about his diagnosis. He has no chest pain, no shortness of breath lying in bed. He has no other new complaints. Exam Vital Signs Vital Sign - Last Date Time Temp Pulse Resp B/P Pulse Ox O2 Delivery O2 Flow Rate FiO2 05/30/17 00:30 37.3 64 17 131/70 98 Room Air Intake and Output 05/29/17 05/29/17 05/30/17 Cumulative From/Thru 15:00 23:00 07:00 05/27/17 16:20 - 05/30/17 00:30 Intake Total 341 ml 1223 ml 3664 ml Output Total 700 ml 150 ml 4350 ml Balance -359 ml 1073 ml -686 ml Intake Oral 75 ml 400 ml 1675 ml IV Total 266 ml 823 ml 1989 ml Output Urine Total 700 ml 150 ml 4350 ml # Bowel Movements 0 1 Exam General: The patient is resting comfortably supine in bed with his right lower extremity elevated. HEENT: Head is atraumatic and normocephalic. Eyes: Pupils are equally round and reactive to light and accommodation. Extraocular muscles are intact. Sclera are white, anicteric. Subconjunctival mucosa is pink. Ears and nose are unremarkable. Oropharynx: There is no mucosal lesions, there is no thrush, there is no pharyngitis. Neck: Is supple, there are no nodes, or masses or tenderness. Chest: Is clear to auscultation and percussion. There are no rales, rhonchi, wheezes or rubs. Heart: Rate, rhythm is regular. There is no murmur, rub or gallop. Abdomen: Good bowel sounds are present. Abdomen is soft, nontender, no organomegaly or masses were appreciated. Extremities: There is some edema of the right lower extremity. However, there is no cellulitis. There is no tenderness. Negative Homans sign. Neurologic: There are no focal neurological deficits. Cranial nerves II through XII are intact. There are no sensory or motor deficits. Psychiatric: Patients mood is calm and shows no sign of agitation. Genital: Deferred Rectal: Deferred Lab and Diagnostics Result Diagram: 05/29/17205105/29/17 0625 Microbiology Name: REBEKAH RODRÍGUEZ Age/Sex: 56/M Attend Dr: Jaspal Moon Acct: [id number] Unit: [id number] Status: ADM IN Location: [facility] [place] 3022-1 Re05/27/17 Disch: Specimen: [id number] Collected: 05/28/17-UNK Status: COMP Req#: [id number] Received: 05/28/17-1315 Source: STOOL Sp Desc : Subm Dr: Jaspal Moon MD Ordered: WFOBT Comments: Collected by Nurse/Unit? Y/N Y Procedure Result Verified Site Microbiology GEE OCCULT BLOOD IMMUNOCHEM Final 05/28/17-1324 OCCULT BLD IMMUNOCHEMICAL NEGATIVE REFERENCE INTERVAL NEGATIVE X-Rays, CTs and MRIs Chest x-ray IMPRESSION: No acute cardiopulmonary disease. Dictated by: Vivek Galicia M.D. on 05/27/2017 at 18:05 US focused lower extremity venous IMPRESSION: Extensive occlusive and nonocclusive right lower extremity deep venous thrombus extends from the superficial femoral vein down to the posterior tibial and peroneal veins. Dictated by: Vivek Galicia M.D. on 05/27/2017 at 15:33 Approved by: Vivek Galicia M.D. on 05/27/2017 at 15:37 Cardiac Echo Impressions Echocardiogram Report Name: REBEKAH RODRÍGUEZ Kumar e: 05/28/2017 Height: 74 in Hospital Exam Location: [facility] Weight: 223 lb Gender: Male BSA: 2.3 m2 : 1960 Age: 56 yrs BP: 126/79 mmHg Reason For Study: DVT, R/O PULMONARY EMBOLISM Ordering Physician: Performed By: Zara Tavares Referring Physician: Dr. Marsha Mirza Interpretation Summary The left ventricle is normal in size. The ejection fraction is estimated to be 55-60%. The right ventricle is mildly dilated. The right ventricular systolic function is normal. There is mild tricuspid regurgitation. Pulmonary artery pressures cannot be estimated because of the lack of a measurable TR jet velocity. However, doppler pattern across the pulmonary valve, suggest presence of pulmonary hypertension. The IVC is dilated (diameter is greater than 2.1 cm) yet it collapses greater than 50% with a sniff. This suggests a right atrial pressure of 8 mm Hg. The ascending aorta is mildly enlarged. Assessment & Plan The patient is a 56-year-old white male with history of reactive airway disease who presented due to persistent right lower extremity swelling and pain, with restrictive exercise tolerance. Acute on chronic occlusive DVT, confirmed by ultrasound; present admission; ongoing -Etiology unclear, although likely due to traumatic event in September; intermittent shortness of breath could be due to reactive airway disease is also worrisome for intermittent PE, -Differentials include undiagnosed clotting disorder (although rare cannot be diagnosed until his 50s) or cancer as the patient has never had a colonoscopy -Hypercoagulable studies pending -heparin drip -CTA showed a " Large bilateral central pulmonary emboli involving the main pulmonary arteries with saddle embolus tracking into the lower lobes bilaterally. No pulmonary infarction or areas of ischemic injury to the lung parenchyma is found. This information was immediately called to the nursing staff caring for the patient via the charge nurse, and this information will then be immediately conveyed to the hospital staff caring for the patient." -Dr. Yanes has been kind enough to see the patient in consultation. We appreciate his time and expertise. His assessment and plan are as follows: "The patient will be brought down to the medical laboratory scientist today for catheter-directed thrombolysis. I intend to put an IVC filter tomorrow, and at that time, we will see if we can get access into his popliteal vein and do catheter directed thrombolysis of his lower extremities as well." -We will continue the IV heparin drip for now. -Echocardiogram was ordered. Dyspnea, chronic, present on admission -The patient has a history of exercise intolerance likely due to pulmonary emboli -Possibly associated with asthma -Treatment as above Hyperglycemia; present admission; ongoing -Unsure blood work was fasting blood glucose greater than 125 -We will continue to monitor -A1c ordered Disposition: Patient will be here several days further the evaluation and treatment of the above condition. Pain Evaluation: Adequate Pain Control GI Prophylaxis: H2 stormy (due to anticoagulation) VTE Prophylaxis: Other (Heparin dirp) Resuscitation Status: CPR: Attempt Resuscitation Jaspal Moon MD May 30, 2017 00:59
[2017-05-30 02:54] LABS: BASOPHILS % (AUTO) 0.4 % (0-3); EOSINOPHILS % (AUTO) 1.5 % (0-5); MONOCYTES % (AUTO) 7.7 % (4-12); Mean Corpuscular Hemoglobin 31.3 pg (27.0-35.0); Mean Corpuscular Volume 89.8 fL (81-100); NEUTROPHILS % (AUTO) 67.4 % (40-74); Platelet Count 171 bil/L (150-400)
--- NOTE | 2017-05-30 05:49 | NUR ---
EKOS Patient tolerated EKOS x2 inserted in right groin sheaths, pbx technician came into pull EKOS catheters about 0100, tolerated well and patient stated "I feel so good" and stated its easier to breath, NPO after midnight, pleasant and cooperative, uneventful shift, c/o back discomfort but did not want to take any pain medications, updated patient on POC, VSS and on room air this shift, no s/sx of bleeding, will continue to monitor. Addendum: 05/30/17 at 0558 by ARLENE DEE RN Amended: Links added.
--- NOTE | 2017-05-30 10:30 | NUR ---
NUTRITION ASSESSMENT: ASSESS: Pt is a 56yo M admitted for DVT and possible PE. Pt has been NPO x3 days due to need for multiple surgeries. Pt is currently in CCU. Plan to return to slab stripper today. PMHX: reactive airway disease LABS: Reviewed. Glu 102, Alb 3.7 MEDS: Reviewed. GI: BMx1 05/28 SKIN: no issues noted CURRENT WTS: 102kg, BMI 28.9kg/m2 DIET: NPOx3 EST. NEEDS: Kcals: 2245-2550kcal/day (22-25kcal/kg) Pro: 100-120g/day (1.0-1.2g/kg) NUTRITION DIAGNOSIS: 1.) Inadequate oral intake related to decreased ability to consume sufficient energy as evidenced by current NPO status NUTRITION INTERVENTION: 1.) Recommend advance diet when medically appropriate MONITOR / EVAL: NPO, wt, GI, labs, POC, nutrition status. Will continue to monitor per moderate nutrition risk guidelines
[2017-05-30] MEDS ORDERED: Heparin 1,000 Units/500 mL NS Premix IV ONE ×2 (11:05→12:08)
[2017-05-30] MEDS: Heparin 25K Unit/500mL 0.45 NS 25,000 UNIT in IV Premix 1 EACH IV SCH (11:59)
[2017-05-30] MEDS ORDERED: 0.9% Sodium Chloride 1,000 ML ONE (12:00)
[2017-05-30] MEDS ORDERED: Heparin 10,000 Unit/1,000 mL NS Premix IV ONE ×2 (12:00→13:23)
[2017-05-30] MEDS ORDERED: 0.9% Sodium Chloride 500 ML ONE (12:08)
[2017-05-30] MEDS ORDERED: Heparin 1,000 Unit/mL 10 mL Inj ONE (12:09)
[2017-05-30] MEDS ORDERED: Heparin 25K Unit/500mL 0.45 NS 25,000 UNIT in IV Premix 1 EACH IV SCH (12:30)
[2017-05-30] MEDS ORDERED: fentaNYL-PF 50 mCg/mL 2 mL Inj ONE ×2 (12:33→13:12)
[2017-05-30] MEDS ORDERED: SODIUM CHLORIDE IV ONE ×2 (13:00)
[2017-05-30] MEDS ORDERED: ALTEPLASE IV ONE ×2 (13:00)
[2017-05-30] MEDS: Alteplase (Cathflo) Inj 10 MG in 0.9% Sodium Chloride 240 ML IV ONE ×2 (14:05→15:14)
[2017-05-30] MEDS ORDERED: Ondansetron 2 mg/mL 2 mL Inj IVPUSH PRN (15:40)
[2017-05-30] MEDS ORDERED: 0.9% Sodium Chloride 400 ML (4 HRS) IV ONE (15:40)
[2017-05-30] MEDS ORDERED: Sodium Chloride LOK Flush 10 mL Syringe IVFLUSH PRN (15:40)
[2017-05-30] MEDS ORDERED: Atropine 1 mg/10 mL (Code) Syringe IVPUSH PRN (15:40)
[2017-05-30] MEDS ORDERED: 0.9% Sodium Chloride 250 ML BOLUS IV PRN (15:40)
--- NOTE | 2017-05-30 15:41 | PCM.PNMED ---
Subjective Date of Service May 30, 2017 PULMONOLOGY/CRITICAL CARE PROGRESS NOTE . Subjective Patient is status post catheter-directed thrombolysis of pulmonary arteries and doing well this morning. Hemodynamically stable overnight and without complaint this morning. He states that he is breathing better and denies chest pain, palpitations, increased leg pain or swelling. He reports some discomfort in his back which he attributes to lying in the same position and limited mobility secondary to the catheter site in his groin. Exam Vital Signs Vital Sign - Last Date Time Temp Pulse Resp B/P Pulse Ox O2 Delivery O2 Flow Rate FiO2 05/30/17 12:30 37.0 64 16 130/84 98 Room Air Intake and Output 05/29/17 05/29/17 05/30/17 Cumulative From/Thru 15:00 23:00 07:00 05/27/17 16:20 - 05/30/17 04:44 Intake Total 341 ml 1223 ml 2554 ml 6218 ml Output Total 700 ml 150 ml 850 ml 5200 ml Balance -359 ml 1073 ml 1704 ml 1018 ml Intake Oral 75 ml 400 ml 720 ml 2395 ml IV Total 266 ml 823 ml 1834 ml 3823 ml Output Urine Total 700 ml 150 ml 850 ml 5200 ml # Bowel Movements 0 0 1 Exam General: Alert and oriented x3. In no acute distress. Chest & Lungs: Symmetric chest rise with equal air entry bilaterally, lungs are clear to auscultation with no crackles, wheezes, or rhonchi. Cardiovascular: Regular Rate/Rhythm, No Murmurs/Rubs/Gallops Abdomen: Non-tender, Non-distended Extremities: Warm, Tenderness/Swelling Noted (right calf) Neurological: Grossly Neurologically Intact IVs and Medications Medications Reviewed: Medications were reviewed in detail Lab and Diagnostics Laboratory Tests Test 05/29/17 17:19 05/29/17 20:52 05/30/17 00:02 05/30/17 02:45 Activated Partial Thromboplast Time 48.7sec (22.8-33.0) 31.0sec (22.8-33.0) 28.9sec (22.8-33.0) 29.2sec (22.8-33.0) Hematocrit 40.8% (41.0-50.0) 40.7% (41.0-50.0) Fibrinogen 326mg/dL (157-380) 294mg/dL (157-380) White Blood Count 8.2th/mm3 (3.8-10.1) Red Blood Count 4.53mil/mm3 (4.40-5.80) Hemoglobin 14.2g/dL (13.8-17.2) Mean Corpuscular Volume 89.8fL (81-100) Mean Corpuscular Hemoglobin 31.3pg (27.0-35.0) Mean Corpuscular Hemoglobin Concent 34.9% (32.0-37.0) Red Cell Distribution Width 12.1% (12.3-15.4) Platelet Count 171bil/L (150-400) Neutrophils (%) (Auto) 67.4% (40-74) Lymphocytes (%) (Auto) 22.9% (14-46) Monocytes (%) (Auto) 7.7% (4-12) Eosinophils (%) (Auto) 1.5% (0-5) Basophils (%) (Auto) 0.4% (0-3) Sodium Level 141mEq/L (134-144) Potassium Level 3.9mEq/L (3.5-5.2) Chloride Level 108mEq/L (97-108) Carbon Dioxide Level 20mmol/L (18-29) Blood Urea Nitrogen 18mg/dL (6-24) Creatinine 0.78mg/dL (0.76-1.27) Estimat Glomerular Filtration Rate 109mL/min (>59) Glucose Level 102mg/dL (60-99) Calcium Level 8.8mg/dL (8.5-10.1) Magnesium Level 2.0mg/dL (1.6-2.6) Total Bilirubin 0.5mg/dL (0.0-1.2) Aspartate Amino Transf (AST/SGOT) 29U/L (0-50) Alanine Aminotransferase (ALT/SGPT) 18U/L (0-44) Alkaline Phosphatase 62U/L (25-150) Total Protein 6.4g/dL (6.4-8.4) Albumin 3.7g/dL (3.4-5.0) Test 05/30/17 08:35 05/30/17 14:55 Hematocrit 40.6% (41.0-50.0) 41.0% (41.0-50.0) Platelet Count 182bil/L (150-400) 173bil/L (150-400) Activated Partial Thromboplast Time 28.9sec (22.8-33.0) Fibrinogen 300mg/dL (157-380) Microbiology 05/28/17 Stool Occult Blood (GEE) - Negative Result Diagram: 05/30/17 1455 05/30/17 0245 X-Rays, CTs and MRIs (05/28/17) Chest x-ray IMPRESSION: No acute cardiopulmonary disease. Dictated and approved by: Vivek Galicia M.D. on 05/27/2017 at 18:05 (05/28/17) US focused lower extremity venous IMPRESSION: Extensive occlusive and nonocclusive right lower extremity deep venous thrombus extends from the superficial femoral vein down to the posterior tibial and peroneal veins. Dictated and approved by: Vivek Galicia M.D. on 05/27/2017 at 15:33 Cardiac Echo Impressions (05/28/17) Echocardiogram Report Interpretation Summary The left ventricle is normal in size. The ejection fraction is estimated to be 55-60%. The right ventricle is mildly dilated. The right ventricular systolic function is normal. There is mild tricuspid regurgitation. Pulmonary artery pressures cannot be estimated because of the lack of a measurable TR jet velocity. However, doppler pattern across the pulmonary valve, suggest presence of pulmonary hypertension. The IVC is dilated (diameter is greater than 2.1 cm) yet it collapses greater than 50% with a sniff. This suggests a right atrial pressure of 8 mm Hg. The ascending aorta is mildly enlarged. Assessment & Plan 56-year-old previously healthy gentleman who presented with right calf pain and swelling associated with shortness of breath for the past 6-8 months admitted for further evaluation and management of extensive right lower extremity DVT and large bilateral central pulmonary emboli. Now status post catheter-directed thrombolysis of pulmonary arteries on 05/29 and IVC filter placement 05/30. -Patient is hemodynamically stable and without breathing difficulty. He tolerated the catheter-directed thrombolysis and returned to the agriculture laborer today per Cardiology for placement of IVC filter placement. From a respiratory standpoint he is stable but due to the significant clot burden at presentation he is remains at a higher risk for decompensation. Recommend continued anticoagulation with heparin drip and management of IVC placement/long-term anticoagulation per Cardiology. Hypercoagulable studies are still pending and patient would likely benefit from outpatient evaluation by Hematology. Thank you for involving us in the care of this interesting patient, we will continue to follow along with you. GI Prophylaxis: H2 stormy (due to anticoagulation) VTE Prophylaxis: Other (Heparin dirp) Resuscitation Status: CPR: Attempt Resuscitation Attending Statement The patient was seen and examined together with Dr. Luther on 05/30/2017 and I agree with the history, exam and plan as outlined in the note above. Daksha Luther DO May 30, 2017 15:26 Oscar Colindres MD Jun 02, 2017 14:41
--- NOTE | 2017-05-30 15:42 | DI96 ---
[address] [address] PERIPHERAL CATHETERIZATION/INTERVENTION REPORT PATIENT: REBEKAH RODRÍGUEZ : 1960 MR#: [id number] ADMIT: 05/27/2017 JOB ID: [id number] DATE: 05/30/2017 PROCEDURE: IVC filter insertion. INDICATION: Extensive DVT, bilateral pulmonary emboli. PROCEDURAL DETAILS: The reader and coders are to refer to the procedure log. Briefly, it was done via the right femoral approach. A pigtail catheter was placed in the inferior vena cava and a venogram was then performed. Renal arteries were identified. IVC measured 23 mm. A Select IVC filter was then placed just below the renal veins. The IVC filter deployment was successful with no complications.
--- NOTE | 2017-05-30 15:50 | DI95 ---
[address] [address] INTERVENTIONAL CARDIAC CATHETERIZATION PATIENT: REBEKAH RODRÍGUEZ : 1960 MR#: [id number] ADMIT: 05/27/2017 JOB ID: [id number] DATE: 05/30/2017 PROCEDURE: 1. Catheter-directed thrombolysis of the right lower extremity. 2. Ultrasound guided access of the right popliteal vein. INDICATION: Extensive occlusive thrombus in the right lower extremity. PROCEDURAL DETAILS: Please refer to the procedure log for complete details. The coders and the readers are both requested to refer to this document for complete details. Briefly, the patient was placed in a prone position with ultrasound access. With ultrasound guidance, we were able to access the right popliteal vein with a micropuncture needle. A 6-Japanese sheath was then placed in the right popliteal vein. We then took the echo and placed it into right distal external iliac wing. A 50 cm catheter was used to deliver a long area of therapy extending all the way down to the popliteal vein. The patient will receive catheter-directed thrombolysis for 10 hours.
--- NOTE | 2017-05-30 16:55 | PCM.PNMED ---
Subjective Date of Service May 30, 2017 Subjective 56-year-old man with minimal medical history presents with saddle pulmonary embolus and DVTs. He is asymptomatic today. He has not been ambulating due to catheter directed thrombolysis procedure. States that breathing is intermittently very mildly labored. No chest pain. No hemoptysis. Exam Vital Signs Vital Sign - Last Date Time Temp Pulse Resp B/P Pulse Ox O2 Delivery O2 Flow Rate FiO2 05/30/17 12:30 37.0 64 16 130/84 98 Room Air Intake and Output 05/29/17 05/29/17 05/30/17 Cumulative From/Thru 15:00 23:00 07:00 05/27/17 16:20 - 05/30/17 04:44 Intake Total 341 ml 1223 ml 2554 ml 6218 ml Output Total 700 ml 150 ml 850 ml 5200 ml Balance -359 ml 1073 ml 1704 ml 1018 ml Intake Oral 75 ml 400 ml 720 ml 2395 ml IV Total 266 ml 823 ml 1834 ml 3823 ml Output Urine Total 700 ml 150 ml 850 ml 5200 ml # Bowel Movements 0 0 1 Exam General: Healthy-appearing man in no acute distress HEENT: sclerae anicteric, oral mucosa moist Neck: no JVD Chest: clear to auscultation Cardiac: S1S2, no S4, no rub, no murmur Abdomen: BS normal, non-tender Extremities: No pitting edema; legs appear to be symmetric Neuro: A&O, cranial nerves symmetric, motor strength 5/5, coordination normal Lab and Diagnostics Result Diagram: 05/30/17 1455 05/30/17 0245 X-Rays, CTs and MRIs (05/28/17) Chest x-ray IMPRESSION: No acute cardiopulmonary disease. Dictated and approved by: Vivek Galicia M.D. on 05/27/2017 at 18:05 (05/28/17) focused lower extremity venous IMPRESSION: Extensive occlusive and nonocclusive right lower extremity deep venous thrombus extends from the superficial femoral vein down to the posterior tibial and peroneal veins. Dictated and approved by: Vivek Galicia M.D. on 05/27/2017 at 15:33 Cardiac Echo Impressions (05/28/17) Echocardiogram Report Interpretation Summary The left ventricle is normal in size. The ejection fraction is estimated to be 55-60%. The right ventricle is mildly dilated. The right ventricular systolic function is normal. There is mild tricuspid regurgitation. Pulmonary artery pressures cannot be estimated because of the lack of a measurable TR jet velocity. However, doppler pattern across the pulmonary valve, suggest presence of pulmonary hypertension. The IVC is dilated (diameter is greater than 2.1 cm) yet it collapses greater than 50% with a sniff. This suggests a right atrial pressure of 8 mm Hg. The ascending aorta is mildly enlarged. Assessment & Plan 56-year-old previously healthy gentleman with shortness of breath. Now status post catheter-directed thrombolysis of pulmonary arteries on 05/29 and IVC filter placement 05/30. # Pulmonary embolism, acute, POA. Completing pulmonary catheter thrombolysis today and initiating lower extremity thrombolysis. - Complete thrombolysis - Initiate oral anticoagulant with appropriate bridging - Increase ambulation on 05/31 # Hyperglycemia, present on admission. Appears to be transient. - Discontinue blood sugar checks. Disposition: Anticipate discharge to home after initiation of appropriate anticoagulation with bridging. Duration yet to be determined. GI Prophylaxis: H2 stormy (due to anticoagulation) VTE Prophylaxis: Other (Heparin dirp) Resuscitation Status: CPR: Attempt Resuscitation Time spent 25 minutes Justice Boo MD May 30, 2017 16:54
--- NOTE | 2017-05-30 18:11 | NUR ---
P: Pain I: Pt with minimal HOB up and flat with Right leg straight. Rt groin sheath x2 patent with NS infusing TKO to keep open. Pt went to mill labor supervisor and Ekos pulled out of groin sheath and placed in popleteal with TPA,Heparin, NS. Pulses palpable. Taking diet and fluids well without difficulty. IV Heparin at 600units/hr. PTT drawn and was 108.9. Dr. Yanes aware of PTT and he had given pt an extra dose of heparin in the odd job laborer to get him up here and PTT is fine. Room air with good sats. Tylenol po for discomfort given with good results. mill labor supervisor will be in tonight at 0030 to pull EKOS. Ramey patent and draining good urine output. Afebrile. VSS. NSR with first degree block. No c/o chest pain or SOB. Frequent Sheath checks and circulation checks. E: Improving. S: Pt updated on his condition and plan of care. Frequent rounding. Alert and Oriented. Able to use call deras appropriately.
[2017-05-31] VITALS (22 sets, daily range): BP systolic 106–140; BP diastolic 59–96; PULSE 56–73; RESP 8–22; O2SAT 95–99
[2017-05-31] MEDS ORDERED: Heparin 25K Unit/500mL 0.45 NS 25,000 UNIT in IV Premix 1 EACH IV SCH (00:30)
[2017-05-31] MEDS ORDERED: Heparin 5,000 Unit/mL Inj IVPUSH PRN (00:30)
--- NOTE | 2017-05-31 05:36 | NUR ---
EKOS Patient tolerated EKOS in right leg well last night, no problems or pain in right leg, patient is experiencing some back pain due to laying in bed flat the past 2 days, right groin and right leg sheaths clean dry and intact, NS and Heparin infusing TKO, patient started on cardiac heparin protocol after EKOS completed, next PTT heparin at 0630, VSS, patient resting in bed and no needs at this time, will continue to monitor. Addendum: 05/31/17 at 0540 by ARLENE DEE RN Amended: Links added.
--- NOTE | 2017-05-31 06:52 | NUR ---
NUTRITION FOLLOW-UP: ASSESS: Pt is a 56 YO male admitted with saddle pulmonary embolus and DVT's. Pt was NPO x 3 days due to need for multiple surgeries; status post thrombolysis 05/29, followed by IVC filter placement 05/30. The patient is recovering well; diet advanced appropriately, with good PO intake. The patient has not had a BM since 05/28. PMHX: Reactive airway disease, DVT. LABS: Reviewed. Glu 115, A1c 5.5. MEDS:Reviewed. GI: BM x 1 (05/28). SKIN: No issues reported. WT: 102.7 kg, BMI 29.0 kg/m2 DIET: Heart healthy. PO intake 100% trays, adequate fluids per nursing report. EST. NEEDS: Kcals: 2245-2550kcal/day (22-25kcal/kg) Pro: 100-120g/day (1.0-1.2g/kg) NUTRITION DIAGNOSIS: 1) Inadequate oral intake related to decreased ability to consume sufficient energy as evidenced by current NPO status - RESOLVED. NUTRITION INTERVENTION: 1) Recommend initiation of bowel regimen. 2) Will monitor for nutrition education should warfarin be determined to be the best anticoagulant. MONITOR / EVAL: PO Intake, wt, GI, labs, POC, nutrition status. Will continue to monitor per low nutrition risk guidelines.
--- NOTE | 2017-05-31 10:12 | NUR ---
Heparin infusion PTT this morning called at 0705 by lab support tech was 38.3. Heparin drip ordering MD was made aware about result and after consulting with MD 3000units of IV bolus of heparin was given and drip was increased form 1000units/h to 1100units/h as per cardiac heparin protocol. In addition patient had continues infusion heparin 2units/ml concentration at 20ml/h through right post tibia sheath. Cardiac heparin drip was discontinued at 09:48 physical education instructor to kiln labourer. Out to kiln labourer at 10:09.
--- NOTE | 2017-05-31 10:33 | PCM.PNMED ---
Subjective Date of Service May 31, 2017 PULMONOLOGY/CRITICAL CARE PROGRESS NOTE Attending physician: Oscar Colindres MD Resident physician: Daksha Luther DO . Subjective No acute events overnight with continued anticoagulation with heparin. He reports mild back pain secondary to his limited mobility and prone position. Otherwise he is doing well and denies shortness of breath, chest pain or palpitations, pain in his right leg or at the right groin cath site. Exam Vital Signs Vital Sign - Last Date Time Temp Pulse Resp B/P Pulse Ox O2 Delivery O2 Flow Rate FiO2 05/31/17 07:24 37.1 58 8 118/80 98 Room Air Intake and Output 05/30/17 05/30/17 05/31/17 Cumulative From/Thru 15:00 23:00 07:00 05/27/17 16:20 - 05/31/17 05:32 Intake Total 821 ml 2266 ml 9305 ml Output Total 1850 ml 1300 ml 8350 ml Balance -1029 ml 966 ml 955 ml Intake Oral 240 ml 720 ml 3355 ml IV Total 581 ml 1546 ml 5950 ml Output Urine Total 1850 ml 1300 ml 8350 ml # Bowel Movements 0 1 Exam General: Alert and oriented x3. In no acute distress. Chest & Lungs: Symmetric chest rise with equal air entry bilaterally, lungs are clear to auscultation with no crackles, wheezes, or rhonchi. Cardiovascular: Regular Rate/Rhythm, No Murmurs/Rubs/Gallops Abdomen: Non-tender, Non-distended Extremities: Warm, Tenderness/Swelling Noted (right calf) Neurological: Grossly Neurologically Intact IVs and Medications Medications Reviewed: Medications were reviewed in detail Lab and Diagnostics Laboratory Tests Test 05/30/17 14:55 05/30/17 20:28 05/30/17 20:30 05/31/17 02:30 Hematocrit 41.0% (41.0-50.0) 41.1% (41.0-50.0) 40.5% (41.0-50.0) Platelet Count 173bil/L (150-400) 164bil/L (150-400) 145bil/L (150-400) Activated Partial Thromboplast Time 108.5sec (22.8-33.0) 30.6sec (22.8-33.0) Fibrinogen 294mg/dL (157-380) 208mg/dL (157-380) 102mg/dL (157-380) Hemoglobin 14.3g/dL (13.8-17.2) Sodium Level 139mEq/L (134-144) Potassium Level 3.8mEq/L (3.5-5.2) Chloride Level 105mEq/L (97-108) Carbon Dioxide Level 21mmol/L (18-29) Blood Urea Nitrogen 20mg/dL (6-24) Creatinine 0.79mg/dL (0.76-1.27) Estimat Glomerular Filtration Rate 107mL/min (>59) Glucose Level 115mg/dL (60-99) Calcium Level 8.6mg/dL (8.5-10.1) Test 05/31/17 06:30 05/31/17 08:45 Activated Partial Thromboplast Time 38.3sec (22.8-33.0) 78.6sec (22.8-33.0) Hematocrit 40.7% (41.0-50.0) Platelet Count 161bil/L (150-400) Fibrinogen 145mg/dL (157-380) Microbiology 05/28/17 Stool Occult Blood (GEE) - Final, Complete Result Diagram: 05/31/17 0845 05/31/17 0230 X-Rays, CTs and MRIs (05/28/17) Chest x-ray IMPRESSION: No acute cardiopulmonary disease. Dictated and approved by: Vivek Galicia M.D. on 05/27/2017 at 18:05 (05/28/17) US focused lower extremity venous IMPRESSION: Extensive occlusive and nonocclusive right lower extremity deep venous thrombus extends from the superficial femoral vein down to the posterior tibial and peroneal veins. Dictated and approved by: Vivek Galicia M.D. on 05/27/2017 at 15:33 Cardiac Echo Impressions (05/28/17) Echocardiogram Report Interpretation Summary The left ventricle is normal in size. The ejection fraction is estimated to be 55-60%. The right ventricle is mildly dilated. The right ventricular systolic function is normal. There is mild tricuspid regurgitation. Pulmonary artery pressures cannot be estimated because of the lack of a measurable TR jet velocity. However, doppler pattern across the pulmonary valve, suggest presence of pulmonary hypertension. The IVC is dilated (diameter is greater than 2.1 cm) yet it collapses greater than 50% with a sniff. This suggests a right atrial pressure of 8 mm Hg. The ascending aorta is mildly enlarged. Assessment & Plan 56-year-old previously healthy gentleman who presented with right calf pain and swelling associated with shortness of breath for the past 6-8 months admitted for right lower extremity DVT and large bilateral central pulmonary emboli. Now status post catheter-directed thrombolysis of pulmonary arteries on 05/29 and IVC filter placement 05/30. -Patient remains hemodynamically stable and without breathing difficulty. He tolerated the catheter-directed thrombolysis as well as the IVC filter placement. Despite continuous infusion of heparin PTT this morning was 38.3. Patient received IV bolus of heparin per cardiology and heparin drip increased to 1100units/hour. He was taken back to the analytical lab analyst for further evaluation of right lower extremity DVT with venogram. From a respiratory standpoint he continues to be without difficulty but due to the significant clot burden at presentation he remains at a higher risk for decompensation. Particularly in the setting of relative shortened PTT on the heparin drip. Recommend continued anticoagulation with heparin and management of IVC placement/long-term anticoagulation per Cardiology. Hypercoagulable studies are unremarkable and DVT likely provoked secondary to trauma to that side. Thank you for involving us in the care of this interesting patient, we will continue to follow along with you. . GI Prophylaxis: H2 stormy (due to anticoagulation) VTE Prophylaxis: Other (Heparin dirp) Resuscitation Status: CPR: Attempt Resuscitation Attending Statement The patient was seen and examined together with Dr. Luther on 05/31/2017 and I agree with the history, exam and plan as outlined in the note above. Daksha Luther DO May 31, 2017 10:33 Oscar Colindres MD Jun 02, 2017 14:43
[2017-05-31] MEDS ORDERED: Heparin 5,000 Unit/mL Inj SUBQ ONE (11:40)
[2017-05-31] MEDS ORDERED: Heparin Protocol Boluses IVPUSH PRN (11:40)
[2017-05-31] MEDS: Heparin 25K Unit/500mL 0.45 NS 25,000 UNIT in IV Premix 1 EACH IV SCH ×2 (11:43→16:26)
--- NOTE | 2017-05-31 12:51 | PCM.PNMED ---
Subjective Date of Service May 31, 2017 Subjective 56-year-old man with minimal medical history presents with saddle pulmonary embolus and DVT. He is asymptomatic today. He has not been ambulating due to catheter directed thrombolysis procedure. No dyspnea. No chest pain. No hemoptysis. Exam Vital Signs Vital Sign - Last Date Time Temp Pulse Resp B/P Pulse Ox O2 Delivery O2 Flow Rate FiO2 05/31/17 12:06 37.0 71 22 138/92 99 Room Air Intake and Output 05/30/17 05/30/17 05/31/17 Cumulative From/Thru 15:00 23:00 07:00 05/27/17 16:20 - 05/31/17 05:32 Intake Total 821 ml 2266 ml 9305 ml Output Total 1850 ml 1300 ml 8350 ml Balance -1029 ml 966 ml 955 ml Intake Oral 240 ml 720 ml 3355 ml IV Total 581 ml 1546 ml 5950 ml Output Urine Total 1850 ml 1300 ml 8350 ml # Bowel Movements 0 1 Exam General: Healthy-appearing man in no acute distress HEENT: sclerae anicteric, oral mucosa moist Neck: no JVD Chest: clear to auscultation Cardiac: S1S2, no gallop, no murmur Abdomen: BS normal, non-tender Extremities: No pitting edema; legs appear to be symmetric; right groin site without ecchymosis or hematoma Neuro: A&O, cranial nerves symmetric, motor strength and coordination normal IVs and Medications Medications Reviewed: Medications were reviewed in detail Lab and Diagnostics Result Diagram: 05/31/17 0845 05/31/17 1108 X-Rays, CTs and MRIs (05/28/17) Chest x-ray IMPRESSION: No acute cardiopulmonary disease. Dictated and approved by: Vivek Galicia M.D. on 05/27/2017 at 18:05 (05/28/17) focused lower extremity venous IMPRESSION: Extensive occlusive and nonocclusive right lower extremity deep venous thrombus extends from the superficial femoral vein down to the posterior tibial and peroneal veins. Dictated and approved by: Vivek Galicia M.D. on 05/27/2017 at 15:33 PROCEDURE: CT ANGIO CHEST PULMONARY EMBOLISM ([id number]) IMPRESSION: Large bilateral central pulmonary emboli involving the main pulmonary arteries with saddle embolus tracking into the lower lobes bilaterally. No pulmonary infarction or areas of ischemic injury to the lung parenchyma is found. This information was immediately called to the nursing staff caring for the patient via the charge nurse, and this information will then be immediately conveyed to the hospital staff caring for the patient. Dictated by: Jeremias Gay M.D. on 05/28/2017 at 16:59 . Cardiac Echo Impressions (05/28/17) Echocardiogram Report Interpretation Summary The left ventricle is normal in size. The ejection fraction is estimated to be 55-60%. The right ventricle is mildly dilated. The right ventricular systolic function is normal. There is mild tricuspid regurgitation. Pulmonary artery pressures cannot be estimated because of the lack of a measurable TR jet velocity. However, doppler pattern across the pulmonary valve, suggest presence of pulmonary hypertension. The IVC is dilated (diameter is greater than 2.1 cm) yet it collapses greater than 50% with a sniff. This suggests a right atrial pressure of 8 mm Hg. The ascending aorta is mildly enlarged. Assessment & Plan 56-year-old previously healthy man with history of chronic right leg swelling presents with shortness of breath and saddle pulmonary embolus. # Pulmonary embolism, acute, POA. CNow status post catheter-directed thrombolysis of pulmonary arteries on 05/29, right lower extremity venous catheter directed thrombolysis and IVC filter placement 05/30. Completed thrombolysis at 2 AM on 05/31. Repeat sonography performed 05/31 - Initiate oral anticoagulant with apixaban - Discontinue heparin drip at time of apixaban - Increase ambulation on 05/31 # Hyperglycemia, present on admission. Hemoglobin A1c 5.5%. - Discontinue blood sugar checks. Disposition: Anticipate discharge to home on 06/01. GI Prophylaxis: H2 stormy (due to anticoagulation) VTE Prophylaxis: Other (Heparin dirp) Resuscitation Status: CPR: Attempt Resuscitation Time spent 20 minutes Justice Boo MD May 31, 2017 12:51
--- NOTE | 2017-05-31 13:33 | NUR ---
Heparin/behavior Patient returned from labor relations teacher at 1055. All venous sheaths were removed in labor relations teacher. Right groin and posterior right leg below the knee post sheaths removal areas were stable- no bleeding or hematomas were noted. Dr. Yanes ordered heparin drip to be resumed but per DVT protocol. Consulted with CCU pharmacist- heparin drip was started at 1105 at 18units/kg/h and patient received 4000units IV heparin bolus shortly after that- next PTT in 6h after changes were made. Patient to remain on bed rest for 4h after arriving to CCU form labor relations teacher per MD verbal order. May transfer to [facility] telemetry after ambulating and if stable. Patient appeared to be eager to get up and wanted to leave but yet was understanding that it was not possible at the time in his condition. Patient appeared frustrated with his recovery time until labor relations teacher today and the need to remain on bedrest for additional 4h following sheaths removal today. Frequently was using inappropriate language and apologizing for it afterwards. Patient was reminded that using obscenities and inappropriate language was not welcome in hospital settings or any setting and was asked to refrain for such. Patient was encouraged to focus on positive outcomes of his hospital stay so far.
--- NOTE | 2017-05-31 13:57 | DI95 ---
[address] [address] INTERVENTIONAL CARDIAC CATHETERIZATION PATIENT: REBEKAH RODRÍGUEZ : 1960 MR#: [id number] ADMIT: 05/27/2017 JOB ID: [id number] DATE OF SERVICE: PROCEDURE: Venogram. INDICATION: DVT. DETAILS OF PROCEDURE: The patient was brought back to the [facility] for . Further procedural details are enumerated in the procedure log to which the reader and coders are referred. The run was done via pre-existing femoral sheath. The patient still has significant clot burden in his femoral as well as common femoral vessel. There does not appear to be any significant extension into the iliacs. Brisk flow was noted into the iliac vessels. Overall the flow has improved significantly post echos. At this point, I would recommend that the patient be continued on full dose anticoagulation and repeat an ultrasound in 4-6 weeks.
--- NOTE | 2017-05-31 16:01 | NUR ---
Social Work: Initial Assessment/Multidisciplinary Rounds D: Pt discussed in am rounds. Pt is not medically stable for dsicharge. Capacity for self-care discussed; no concerns or d/c needs identified. Pt remains in CCU but is anticipated to go home with no sw needs and an anticoagulant medication to be determined by MD. VEHICLE WINDOW TINTER met with pt at bedside to assess for d/c need. Sw role explained, contact info and dcp checklist provided. Pt lives at home iwth his spouse in [place]. Pt is usually I at baseline, and anticipates going home iwth no sw needs. VEHICLE WINDOW TINTER informed pt of possible discharge options including HH. He is receptive if MD wishes to discharge him with this service. A: Pt who is I at baseline. P: Evolving; anticipate pt to discharge home via POV and no sw needs based on MD in am rounds; VEHICLE WINDOW TINTER to continue to follow to assess for further d/c needs. LORENA Verdin Addendum: 05/31/17 at 1605 by MANNY OTERO Amended: Links added.
--- NOTE | 2017-05-31 17:03 | NUR ---
Activity/transfer to [facility] status Patient off bedrest at 1510- patient ambulated in room and tolerated the activity well. Ramey catheter was removed at 1530- patient has not voided so far yet. Po fluids encouraged and patient was tolerating PO well. Placed on resource conservation specialist and patient ambulated more freely. Up to the bathroom to wash up. Right groin side and right groin dressing remained stable, right post tibia/behind the right knee post sheath removal site and dressing remain stable and unchanged. Patient appeared happy about his increased activity level. He denied any pain, discomfort, lightheadedness, or shortness of breath. Oxygen saturation on RA at rest and with activity was ranging between 96-99%. Patient was transferred to telemetry monitoring status.
[2017-06-01 03:48] VITALS: BP 117/76; PULSE 60; RESP 20; O2SAT 98
[2017-06-01 05:31] VITALS: PULSE 71
--- NOTE | 2017-06-01 05:53 | NUR ---
Cardiac/activity Given Eliquis @ 2038 and stopped heparin gtt as per MD order, Tele NSR, Rt groin and Rt posterior knee puncture site, no bleeding, drsg CDI. Pt up in chair and ambulating in the room with good tolerance, pt looking forward to go home today, vital signs stable
[2017-06-01 08:41] VITALS: PULSE 70
[2017-06-01 08:54] VITALS: BP 118/80; PULSE 65; RESP 20; O2SAT 98
[2017-06-01] MEDS ORDERED: APIX5TAB PO (09:06)
--- NOTE | 2017-06-01 09:11 | PCM.DIMED ---
Discharge Instructions Date of Service Jun 01, 2017 Dates of Hospitalization May 27, 2017 at 19:45 Discharge Diagnosis Discharge Diagnosis Saddle pulmonary embolus, Status post catheter directed therapy, Right leg DVT Medication Instructions Additional med instructions Contact your pharmacy to determine the cost of Eliquis after you finish your first month mud logger coupon. If you need an alternative medicine for financial reasons, this should be anticipated prior to the end of your first month of therapy. Diet Discharge Diet: No restrictions Activity Discharge Activity: No restrictions Call your provider Call your provider for: Other (any new or severe symptoms) Patient Instructions Patient Instructions You may resume normal activities. You should expect that sure exertional tolerance will be reduced for several months. You should expect to have continued mild aching of the right leg. If any of these symptoms worsen or should contact your physician. It is important that you follow-up and have your vena cava filter removed at an appropriate time. Follow-up Provider: Jennifer Mirza MD Follow-up with PCP in: 1 week (for a posthospitalization follow-up appointment) Provider: Sami Yanes MD Follow-up in: Other (call the office for a two-month follow-up appointment with Dr. Yanes) Justice Boo MD Jun 01, 2017 09:11
--- NOTE | 2017-06-01 11:03 | NUR ---
Discharge: Discussed discharge instructions and one new medication. Patient was provided with coupon for [facility] Ayan Haney was called to confirm electronic Rx was rec'd. Patient verbalized understanding of follow up appointments. VSS. Pt ambulating in room independently without report of CP, SOB or dizziness. PIV X2 DC'd intact by RN. Pt exited unit with all personal belongings and was escorted out of the building by CREDIT PRODUCT ANALYST @ [phone].
--- NOTE | 2017-06-01 12:15 | NUR ---
Social Work: Discharge/Multidisciplinary Rounds D: EMR reviewed. Pt is on day 5 of hospitalization. Pt discussed in multidisciplinary rounds. Per MD, pt is medically stable for discharge home today - no SW needs identified. No MD orders received. A: Pt who is independent at baseline. P: Pt discharged home via POV. No SW needs identified. No MD orders received. LORENA Weiss
--- NOTE | 2017-06-01 18:20 | PCM.DC.MED ---
Discharge Summary Date of Service Jun 01, 2017 Dates of Hospitalization Date of Hospital Admission May 27, 2017 at 19:45 Date of Discharge: Jun 01, 2017 Providers: Admitting Physician: Rand Roberson DO Primary Care Physician: Jennifer Mirza MD Attending Physician: Mateo Boo MD Diagnosis at Time of Discharge Diagnosis at Time of Discharge Saddle pulmonary embolus, Status post catheter directed therapy, Right leg DVT Consultations Cardiology, Dr. Tung Yanes Rheumatology, Dr. Oscar Colindres Procedures XRay, CTs & MRIs (05/28/17) Chest x-ray IMPRESSION: No acute cardiopulmonary disease. Dictated and approved by: Vivek Galicia M.D. on 05/27/2017 at 18:05 (05/28/17) US focused lower extremity venous IMPRESSION: Extensive occlusive and nonocclusive right lower extremity deep venous thrombus extends from the superficial femoral vein down to the posterior tibial and peroneal veins. Dictated and approved by: Vivek Galicia M.D. on 05/27/2017 at 15:33 PROCEDURE: CT ANGIO CHEST PULMONARY EMBOLISM ([id number]) IMPRESSION: Large bilateral central pulmonary emboli involving the main pulmonary arteries with saddle embolus tracking into the lower lobes bilaterally. No pulmonary infarction or areas of ischemic injury to the lung parenchyma is found. This information was immediately called to the nursing staff caring for the patient via the charge nurse, and this information will then be immediately conveyed to the hospital staff caring for the patient. Dictated by: Jeremias Gay M.D. on 05/28/2017 at 16:59 . Cardiac Echo Impression (05/28/17) Echocardiogram Report Interpretation Summary The left ventricle is normal in size. The ejection fraction is estimated to be 55-60%. The right ventricle is mildly dilated. The right ventricular systolic function is normal. There is mild tricuspid regurgitation. Pulmonary artery pressures cannot be estimated because of the lack of a measurable TR jet velocity. However, doppler pattern across the pulmonary valve, suggest presence of pulmonary hypertension. The IVC is dilated (diameter is greater than 2.1 cm) yet it collapses greater than 50% with a sniff. This suggests a right atrial pressure of 8 mm Hg. The ascending aorta is mildly enlarged. Brief History History of Present Illness (per admission note): 56-year-old active male with only past medical history including reactive airway disease who presented to emergency department room due to persistent right calf pain and swelling which is been occurring intermittently since before 2015 following a traumatic injury while moving firewood. The patient states that initially his leg was sore but they started noticing intermittently he would be limited due to increased swelling, and pain on exertion. Patient also noticed over the last 8 months that he has intermittent dyspnea and while he usually can work out with weights and cardio he has had to limit himself due to intermittent shortness of breath. The shortness of breath is brand-new for him. He denies any recent fever, chills, dizziness, lightheadedness, chest pain, chest pressure, night sweats, weight loss, or unexplained neurological symptoms. Patient has not had a colonoscopy. Emergency room patient with Doppler which showed extensive thrombus to the superficial femoral, popliteal, and posterior tibial and peroneal veins with occlusion. . Hospital Course # Pulmonary embolism, acute, POA. Now status post catheter-directed thrombolysis of pulmonary arteries on 05/29, right lower extremity venous catheter directed thrombolysis and IVC filter placement 05/30. Completed thrombolysis at 2 AM on 05/31. Repeat sonography performed 05/31 - Initiate oral anticoagulant with apixaban - Return to cardiology for IVC removal # Dyspnea on exertion. - Patient advised that his exercise tolerance will return gradually with resolution of his pulmonary embolism. # Hyperglycemia, present on admission. Hemoglobin A1c 5.5%. - Discontinued blood sugar checks. Exam Vital Signs (Last) Date Time Temp Pulse Resp B/P Pulse Ox O2 Delivery O2 Flow Rate FiO2 06/01/17 08:54 36.4 65 20 118/80 98 Room Air Exam General: Healthy-appearing man in no acute distress HEENT: sclerae anicteric, oral mucosa moist Neck: no JVD Chest: clear to auscultation Cardiac: S1S2, no gallop, no murmur Abdomen: BS normal, non-tender Extremities: No pitting edema; legs appear to be symmetric; right groin site without ecchymosis or hematoma Neuro: A&O, cranial nerves symmetric, motor strength and coordination normal Test 05/27/17 16:48 05/27/17 18:04 05/27/17 20:57 05/28/17 06:20 Hold Purple Top Tube Received (Received) Prothrombin Time 11.1sec (8.1-12.5) Prothromb Time International Ratio 1.04ratio Hold Blue Top Tube Received (Received) Hold Urine Received (Received) Hemoglobin A1c 5.5% (4.8-5.6) Hold [place] Top Tube Received (Received) Protein C Antigen 96% (60-150) Functional Protein C 111% (73-180) Functional Protein S 109% (63-140) Free Protein S 96% (57-157) Total Protein S 149% (60-150) Anti-Thrombin III Antigen 101% (72-124) Hold [place] Top Tube Received (Received) Urine Color Dark yellow (YELLOW) Urine Appearance Clear (CLEAR,HAZY) Urine pH 6.0 (5.0-8.0) Urine Specific [place] 1.025 (1.003-1.035) Urine Protein Negativemg/dL (NEG,TRACE) Urine Glucose (UA) Negativemg/dL (NEGATIVE) Urine Ketones Negativemg/dL (NEGATIVE) Urine Occult Blood Negative (NEGATIVE) Urine Nitrite Negative (NEGATIVE) Urine Bilirubin Negative (NEGATIVE) Urine Urobilinogen Normalmg/dL (NORMAL) Urine Leukocyte Esterase Negative (NEGATIVE) Urine RBC 0-2/hpf (0-2) Urine WBC 0-5/hpf (0-5) Urine Epithelial Cells Occasional/hpf (NONE-MOD) Urine Crystals None seen (NONE SEEN) Urine Bacteria Few/hpf (NONE-FEW) Urine Hyaline Casts None/lpf (NONE) Urine Granular Casts None seen (NONE SEEN) Urine Waxy Casts None seen (NONE SEEN) Urine Red Blood Cell Casts None seen (NONE SEEN) Urine White Blood Cell Casts None seen (NONE SEEN) Urine Mucus Present (None Seen) Urine Trichomonas None seen (NONE SEEN) Urine Yeast None (NONE SEEN) Urinalysis Comment None Urine Culture Reflexed Not indicated Phosphorus Level 3.1mg/dL (2.5-4.9) Triglycerides Level 93mg/dL (0-149) Cholesterol Level 141mg/dL (100-199) LDL Cholesterol, Calculated 88.400mg/dL (0-99) VLDL Cholesterol 18.600mg/dL HDL Cholesterol 34mg/dL (>39) Cholesterol/HDL Ratio 4.15 (0.0-4.4) Test 05/30/17 02:45 06/01/17 02:30 06/01/17 05:40 7/29/17 08:35 White Blood Count 8.2th/mm3 (3.8-10.1) Red Blood Count 4.53mil/mm3 (4.40-5.80) Mean Corpuscular Volume 89.8fL (81-100) Mean Corpuscular Hemoglobin 31.3pg (27.0-35.0) Mean Corpuscular Hemoglobin Concent 34.9% (32.0-37.0) Red Cell Distribution Width 12.1% (12.3-15.4) Neutrophils (%) (Auto) 67.4% (40-74) Lymphocytes (%) (Auto) 22.9% (14-46) Monocytes (%) (Auto) 7.7% (4-12) Eosinophils (%) (Auto) 1.5% (0-5) Basophils (%) (Auto) 0.4% (0-3) Magnesium Level 2.0mg/dL (1.6-2.6) Total Bilirubin 0.5mg/dL (0.0-1.2) Aspartate Amino Transf (AST/SGOT) 29U/L (0-50) Alanine Aminotransferase (ALT/SGPT) 18U/L (0-44) Alkaline Phosphatase 62U/L (25-150) Total Protein 6.4g/dL (6.4-8.4) Albumin 3.7g/dL (3.4-5.0) Platelet Count 165bil/L (150-400) Hemoglobin 14.1g/dL (13.8-17.2) Hematocrit 40.5% (41.0-50.0) Activated Partial Thromboplast Time 27.2sec (22.8-33.0) Sodium Level 141mEq/L (134-144) Potassium Level 3.9mEq/L (3.5-5.2) Chloride Level 107mEq/L (97-108) Carbon Dioxide Level 21mmol/L (18-29) Blood Urea Nitrogen 17mg/dL (6-24) Creatinine 0.81mg/dL (0.76-1.27) Estimat Glomerular Filtration Rate 104mL/min (>59) Glucose Level 112mg/dL (60-99) Calcium Level 9.0mg/dL (8.5-10.1) Fibrinogen 214mg/dL (157-380) Discharge Medications Discharge Medications Apixaban (Eliquis) 5 Mg Tablet 10 MG PO BID 2 pills twice per day for 1 week, then 1 pill twice per day Prescribed by: MATEO BOO MD FA/Vit B Complex & C/Rice Bran (Vitamin B-Complex & C Caplet) 1 Each Tablet 1 EACH PO DAILY (Reported) Additional med instructions Contact your pharmacy to determine the cost of Eliquis after you finish your first month quality assurance manager coupon. If you need an alternative medicine for financial reasons, this should be anticipated prior to the end of your first month of therapy. Followup Plan Discharge Diet: No restrictions Discharge Activity: No restrictions Patient Instructions You may resume normal activities. You should expect that sure exertional tolerance will be reduced for several months. You should expect to have continued mild aching of the right leg. If any of these symptoms worsen or should contact your physician. It is important that you follow-up and have your vena cava filter removed at an appropriate time. Follow-up Provider: Jennifer Mirza MD Follow-up with PCP in: 1 week (for a posthospitalization follow-up appointment) Provider: Sami Yanes MD Follow-up in: Other (call the office for a two-month follow-up appointment with Dr. Yanes) Time spent 35 minutes copies to: Sami Yanes MD; Jennifer Mirza MD, Jeffrey W MD Jun 01, 2017 09:12
== END 2017-06-01 10:10 | disposition home or self-care (01) | DRG 167 ==
LOC: SED 15:38 → MPC 19:45 → PCC 05-29 14:44 → CCU 05-29 15:41 → PCC 05-31 15:40
PROVIDERS: ADMIT Internal Medicine; ATTEND Internal Medicine
PROC: 3E06317 Introduction of Other Thrombolytic into Central Artery, Percutaneous Approach (ICD-10-PCS; principal; 2017-05-29)
PROC: 02HR33Z Insertion of Infusion Device into Left Pulmonary Artery, Percutaneous Approach (ICD-10-PCS; 2017-05-29)
PROC: 02HQ33Z Insertion of Infusion Device into Right Pulmonary Artery, Percutaneous Approach (ICD-10-PCS; 2017-05-29)
PROC: 06H03DZ Insertion of Intraluminal Device into Inferior Vena Cava, Percutaneous Approach (ICD-10-PCS; 2017-05-30)
PROC: 3E03317 Introduction of Other Thrombolytic into Peripheral Vein, Percutaneous Approach (ICD-10-PCS; 2017-05-30)
PROC: B51B1ZZ Fluoroscopy of Right Lower Extremity Veins using Low Osmolar Contrast (ICD-10-PCS; 2017-05-31)
DX: I26.92 Saddle embolus of pulmonary artery without acute cor pulmonale (principal); I82.411 Acute embolism and thrombosis of right femoral vein; I82.431 Acute embolism and thrombosis of right popliteal vein; I82.441 Acute embolism and thrombosis of right tibial vein; I82.491 Acute embolism and thrombosis of other specified deep vein of right lower extremity; R73.9 Hyperglycemia, unspecified